=== PATIENT | male | born 1940 | race Hispanic/Latino ===

== ENCOUNTER → 2018-04-21 | Outpatient (CLI) | payer MEDICARE ==
[~2018-04-21] MED LIST: AMLO10TA7 PO; ATOR20TA65 PO; LISI1TAB9 PO
== END | disposition home or self-care (01) ==
LOC: RAH 10:16
PROVIDERS: ATTEND Internal Medicine
DX: S80.11XS Contusion of right lower leg, sequela (principal); X58.XXXS Exposure to other specified factors, sequela; R60.0 Localized edema; M25.561 Pain in right knee
CPT/HCPCS: 73562; 73590; 93971

== ENCOUNTER 2024-05-10 08:55 | Inpatient (IN) | payer OTHER, MEDICARE ==
[~2024-05-10] VITALS: Ht 167.6 cm; Wt 89.7 kg
[~2024-05-10 08:55] MED LIST changes: +AMLO-258 PO; -AMLO10TA7 PO; +LISI1TAB49 PO; -LISI1TAB9 PO
--- NOTE | 2024-05-10 09:14 | EKG ---
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
[2024-05-10 09:36] LABS: BASOPHILS # (AUTO) 0.02 K/uL (0.00-0.20); BASOPHILS % (AUTO) 0.1 % (0.0-5.0); EOSINOPHILS # (AUTO) 0.18 K/uL (0.00-0.70); EOSINOPHILS % (AUTO) 1.2 % (0.0-8.0); HEMATOCRIT 43.9 % (42-54); IMMATURE GRANULOCYTE ABSOLUTE 0.09 K/uL (0-1); LYMPHOCYTES # (AUTO) 2.6 K/uL (1.0-4.8); LYMPHOCYTES % (AUTO) 17.3 % (21.0-51.0); MEAN CORPUSCULAR HEMOGLOBIN 30.7 pg (27.0-33.0); MEAN CORPUSCULAR HGB CONC 32.6 g/dL (32.0-36.0); MEAN CORPUSCULAR VOLUME 94.2 fL (79-99); MONOCYTES # (AUTO) 1.2 K/uL (0.1-1.0); MONOCYTES % (AUTO) 7.9 % (3.0-13.0); NEUTROPHILS % (AUTO) 72.9 % (40.0-77.0); PLATELET COUNT (AUTO) 345 K/uL (130-400); RED BLOOD CELL COUNT(AUTO) 4.66 MIL/uL (4.50-6.20); RED CELL DISTRIBUTION WIDTH 13.4 % (11.0-15.5); WHITE BLOOD COUNT (AUTO) 15.1 K/uL (4.8-10.8)
[2024-05-10 09:48] LABS: CREATININE 1.4 mg/dL (0.5-1.3); POTASSIUM 4.3 mmol/L (3.5-5.1)
[2024-05-10 09:48] LABS: APPEARANCE,URINE CLEAR (CLEAR); BILIRUBIN,URINE NEGATIVE (NEGATIVE); COLOR,URINE YELLOW (YELLOW); GLUCOSE, URINE (UA) NEGATIVE (NEGATIVE); KETONES,URINE NEGATIVE (NEGATIVE); LEUKOCYTE ESTERASE ,URINE 75 Leu/uL (NEGATIVE); NITRATE,URINE NEGATIVE (NEGATIVE); OCCULT BLOOD,URINE NEGATIVE (NEGATIVE); PROTEIN,URINE 70 mg/dL (NEGATIVE); UROBILINOGEN,URINE 0.2 mg/dL (0.2-1.0)
[2024-05-10 09:52] LABS: ADD UA MICROSCOPIC YES
[2024-05-10 09:53] LABS: BACTERIA,URINE RARE /HPF (None Seen); MUCUS,URINE RARE LPF (None Seen); RBC,URINE 0-1 /HPF (0-1); SQUAMOUS EPITHELIAL CELL,UR RARE /HPF (0-2); WBC,URINE 26-50 /HPF (0-1)
--- NOTE | 2024-05-10 10:06 | HMCIMG ---
Exam Type: CHEST 1VW Clinical Information: WEAKNESS Comparison: None Findings: There is cardiomegaly and there is status post median sternotomy. The lungs are clear of infiltrates. Impression: Clear lungs.
--- NOTE | 2024-05-10 10:13 | ERN ---
ED Note History of Present Illness Stated Complaint: WEAKNESS X ONE WEEK, PER FAMILY Chief Complaint: Fatigue Time Seen by MD: 10:04 Dictation: Patient is an 83-year-old male here with his daughter with complaints of generalized body weakness fatigue with swelling to his lower extremities for several days. She states his primary care doctor told him he had a heart attack several days ago and to come to the hospital. . Currently patient is alert and oriented times 3-4, speech is clear moving all extremities 5/5. Does not have any pain no fever no chills. Allergies: Coded Allergies: No Known Drug Allergies (Unverified Allergy, Unknown, 11/08/16) Home Meds Reported Medications Lisinopril/Hydrochlorothiazide (Lisinopril-Hctz 10-12.5 mg Tab) 1 Each Tablet, 1 EACH PO DAILY, TAB 11/08/16 Amlodipine Besylate (Amlodipine Besylate) 10 Mg Tablet, 10 MG PO DAILY, TAB 11/08/16 Atorvastatin Calcium (Atorvastatin Calcium) 20 Mg Tablet, 20 MG PO HS, TAB 11/08/16 Past Medical History Past Medical History: A-Fib, Diabetes-Type II, GERD, Heart Disease, Hypertension Surgical History: CABG Surgical History Other: HERNIA RN Note Reviewed/Agreed w/PFSH: Yes Review of System Dictation CONSTITUTIONAL: Negative except for HPI fatigue HEAD/FACE: Negative except for HPI EENT: Negative except for HPI RESPIRATORY: Negative except for HPI edema GASTROINTESTINAL/ABDOMINAL: Negative except for HPI GENITOURINARY: Negative except for HPI MUSCULOSKELETAL: Negative except for HPI INTEGUMENTARY: Negative except for HPI NEUROLOGICAL/PSYCH: Negative except for HPI HEMATOLOGIC/LYMPHATIC: Negative except for HPI All Systems Negative, Except as noted above. 13 point review of systems assessed and all negative except for above. Initial Vital Sign VS Vital Signs Date Time Temp Pulse Resp B/P (MAP) Pulse Ox O2 Delivery O2 Flow Rate FiO2 05/10/24 08:58 97.9 83 16 156/94 98 Room Air 0 05/10/24 09:20 21 Physical Exam Dictation Vital Signs reviewed General Appearance: Alert, oriented x 3, no acute distress, well developed, nourished. Head and Face: non-traumatic. Eyes: PERRL, pink conjunctivas, eyelid no trauma, anterior chamber with arcus senilis. Ears: Pinnas intact and no signs of trauma or erythema ear canals clear and no discharge TM no erythema Nose: No discharge, no bleeding. Oropharynx: Mouth normal, tongue pink, pharynx clear,no erythema, tonsils no exudates, no abscesses noted, mucous membrane moist Neck: Supple, non-tender, no thyromegaly, no masses, no JVD, no bruits Breast:Deferred Chest:No tenderness, no crepitus, no paradoxical movement, no retractions Lungs:Clear, well-ventilated, symmetric, no rales, no wheezing, no rhonchi, no stridor, good breath sounds bilaterally Heart: Regular rate, regular rhythm, no murmur, no gallops Vascular: 3+ peripheral edema, Abdomen: Soft, positive bowel sounds, nondistended, no guarding, nontender, no rebound, no masses no hepatomegaly, no splenomegaly, no Briscoe's sign, no hernias. Rectal: Deferred Genital: Deferred Neurological: Normal speech, motor function intact, sensory function intact Musculoskeletal: Neck nontender, full range of motion, back nontender, full range of motion, Extremities: nontender, full range of motion Skin: Color pink, dry, no turgor, no rash, no lacerations, no abrasions, no contusions. Lymphatic: Deferred Results (Laboratory/Radiology) Laboratory/Radiology Laboratory Tests Test 05/10/24 09:28 05/10/24 09:33 05/10/24 10:43 05/10/24 17:11 White Blood Count 15.1 K/uL (4.8-10.8) H Red Blood Count 4.66 MIL/uL (4.50-6.20) Hemoglobin 14.3 g/dL (14.0-18.0) Hematocrit 43.9 % (42-54) Mean Corpuscular Volume 94.2 fL (79-99) Mean Corpuscular Hemoglobin 30.7 pg (27.0-33.0) Mean Corpuscular Hemoglobin Concent 32.6 g/dL (32.0-36.0) Red Cell Distribution Width 13.4 % (11.0-15.5) Platelet Count 345 K/uL (130-400) Mean Platelet Volume 9.8 fL (7.5-10.5) Immature Granulocyte % (Auto) 0.6 % (0-1) Neutrophils (%) (Auto) 72.9 % (40.0-77.0) Lymphocytes (%) (Auto) 17.3 % (21.0-51.0) L Monocytes (%) (Auto) 7.9 % (3.0-13.0) Eosinophils (%) (Auto) 1.2 % (0.0-8.0) Basophils (%) (Auto) 0.1 % (0.0-5.0) Neutrophils # (Auto) 11.0 K/uL (1.8-7.7) H Lymphocytes # (Auto) 2.6 K/uL (1.0-4.8) Monocytes # (Auto) 1.2 K/uL (0.1-1.0) H Eosinophils # (Auto) 0.18 K/uL (0.00-0.70) Basophils # (Auto) 0.02 K/uL (0.00-0.20) Absolute Immature Granulocyte (auto 0.09 K/uL (0-1) Nucleated Red Blood Cells 0.0 % (0.0-0.19) Prothrombin Time 11.5 SEC (9.6-11.6) Prothromb Time International Ratio 1.09 (0.85-1.15) Activated Partial Thromboplast Time 29.6 SEC (26.3-35.5) Sodium Level 138 mmol/L (136-145) Potassium Level 4.3 mmol/L (3.5-5.1) Chloride Level 101 mmol/L (101-111) Carbon Dioxide Level 32 mmol/L (21-32) Blood Urea Nitrogen 30 mg/dL (7-18) H Creatinine 1.4 mg/dL (0.5-1.3) H Glomerular Filtration Rate Calc 50 mL/min (>90) Random Glucose 114 mg/dL (70-105) H Hemoglobin A1c 6.4 % (4.0-6.0) H Estimated Average Glucose (eAG) 137 mg/dL (70-126) H Total Calcium 9.1 mg/dL (8.5-10.1) Magnesium Level 2.00 mg/dL (1.80-2.40) Total Bilirubin 0.8 mg/dL (0.2-1.0) Direct Bilirubin 0.3 mg/dL (0.0-0.3) Aspartate Amino Transf (AST/SGOT) 25 U/L (10-37) Alanine Aminotransferase (ALT/SGPT) 30 U/L (12-78) Alkaline Phosphatase 111 U/L (50-136) Troponin I High Sensitivity 28 ng/L (4-75) Total Protein 7.2 g/dL (6.0-8.3) Albumin 3.4 g/dL (3.5-5.0) L Thyroid Stimulating Hormone (TSH) 2.03 uIU/mL (0.36-3.74) Urine Color YELLOW (YELLOW) Urine Appearance CLEAR (CLEAR) Urine pH 6.0 (5.0-8.0) Urine Specific Ledbetter 1.028 (1.001-1.031) Urine Protein 70 mg/dL (NEGATIVE) H Urine Glucose (UA) NEGATIVE mg/dL (NEGATIVE) Urine Ketones NEGATIVE mg/dL (NEGATIVE) Urine Occult Blood NEGATIVE (NEGATIVE) Urine Nitrate NEGATIVE (NEGATIVE) Urine Bilirubin NEGATIVE mg/dL (NEGATIVE) Urine Urobilinogen 0.2 mg/dL (0.2-1.0) Urine Leukocyte Esterase 75 Roger/uL (NEGATIVE) H Urine RBC 0-1 /HPF (0-1) Urine WBC 26-50 /HPF (0-1) H Urine Squamous Epithelial Cells RARE /HPF (0-2) Urine Bacteria RARE /HPF (None Seen) Urine Hyaline Casts 2-5 /LPF (0-1 /LPF) H Lactic Acid Level 1.3 mmol/L (0.8-2.5) B-Type Natriuretic Peptide 648 pg/mL (0-100) H Whole Blood Glucose 100 MG/DL (70-110) VICE 0907 REASON: WEAKNESS ORDERING PHYSICIAN: ZULY OLIVEIRA DO PROCEDURE: CXR1VW - CHEST 1VW Exam Type: CHEST 1VW Clinical Information: WEAKNESS Comparison: None Findings: There is cardiomegaly and there is status post median sternotomy. The lungs are clear of infiltrates. Impression: Clear lungs. 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 ED Course ED Course Orders Procedure Category Date Status Time Cbc With Differential LAB 05/10/24 Complete 09:07 Basic Metabolic Panel LAB 05/10/24 Complete 09:07 Troponin I High LAB 05/10/24 Complete Sensitivity 09:07 12 Lead Ekg Tracing- EKG 05/10/24 Complete Technical 09:07 Chest 1vw RAD 05/10/24 Resulted 09:07 Urinalysis Profile LAB 05/10/24 Complete 09:07 Urinalysis LAB 05/10/24 Logged W/Microscopic 09:38 Culture Urine MAR 05/10/24 In Process 09:51 B-Type Natriuretic LAB 05/10/24 Complete Peptide 10:09 Blood Cult MAR 05/10/24 In Process 10:16 Lactic Acid LAB 05/10/24 Complete 10:16 Furosemide 40mg Vial PHA 05/10/24 Complete (Lasix 40mg Vial) 12:00 Edm Admit Bridge Order ADM 05/10/24 Transmitted 13:34 Admit Orders ADM 05/10/24 Transmitted 14:02 Echo 2-D Complete ECHO 05/10/24 Logged 14:02 Fall Precautions CPOE 05/10/24 Transmitted 14:15 Aspiration Precautions CPOE 05/10/24 Transmitted 14:15 Consistent Carb DIET 05/10/24 Transmitted Dinner Daily Fluid Intake CPOE 05/10/24 Transmitted Restriction 14:15 Initiate ALY 05/10/24 In Process Hyperglycemia Protoco 14:16 Insulin Regular, PHA 05/10/24 In Process Human 3ml (Humulin R 16:30 Strict I&O CPOE 05/10/24 Transmitted 14:16 Daily Weights CPOE 05/10/24 Transmitted 14:16 *Nursing CPOE 05/10/24 Transmitted Communication: 14:16 Elevate Hob At 30 CPOE 05/10/24 Transmitted Degrees 14:16 Budesonide 0.5 Mg/2 PHA 05/10/24 In Process Ml Inh (Pulmicort 0. 18:00 Ipratropium 0.5 PHA 05/10/24 In Process Mg/2.5 Ml Inh 14:30 Us Venous Doppler US 05/10/24 Resulted Bilateral 14:16 Magnesium LAB 05/10/24 Complete 14:18 Cardiology Consult CONPHYSVC 05/10/24 Transmitted 14:18 Nephrology Consult CONPHYSVC 05/10/24 Transmitted 14:18 Telemetry Monitoring CPOE 05/10/24 Transmitted 14:18 Hepatic Function Panel LAB 05/10/24 Complete 14:18 Ceftriaxone 1g Vial PHA 05/10/24 In Process (Rocephine 1g Inj) 14:30 Pt And Ptt LAB 05/10/24 Complete 14:18 Scd Both Legs While CPOE 05/10/24 Transmitted In Bed 14:18 Acetaminophen 325 Tab PHA 05/10/24 In Process (Tylenol 325mg Tab 14:30 Ondansetron 4mg Inj PHA 05/10/24 In Process (Zofran 4mg Inj) 14:30 Furosemide 40mg Vial PHA 05/10/24 In Process (Lasix 40mg Vial) 21:00 Pantoprazole 40mg Tab PHA 05/10/24 In Process (Protonix 40mg Tab 14:30 Vital Signs(Adult CPOE 05/10/24 Transmitted Hospitalist) 14:23 I&O Q Shift CPOE 05/10/24 Transmitted 14:23 Condition: CPOE 05/10/24 Transmitted 14:23 Activity: Br W/Brp CPOE 05/10/24 Transmitted With Assist 14:23 Enoxaparin Sodium 30 PHA 05/11/24 In Process Mg/0.3 Ml (Lovenox) 09:00 Folic Acid/Vitamin B PHA 05/11/24 In Process Comp W-C (Nephrovit 09:00 Thyroid Stimulating LAB 05/10/24 Complete Hormone 14:23 Hemoglobin A1c LAB 05/10/24 Complete 14:23 Us Abdominal Complete US 05/10/24 Taken 14:15 Metoprolol Succinate PHA 05/10/24 In Process (Toprol Xl) 21:00 Thiamine Hcl (Vitamin PHA 05/10/24 In Process B-1) 15:30 Etoh Alcohol ALY 05/10/24 In Process Withdrawal Ords 15:33 Chlordiazepoxide Hcl PHA 05/10/24 In Process 25 Mg Cap (Librium 16:00 Lorazepam 2 Mg PHA 05/10/24 In Process (Ativan) 16:00 Pharmacy PHA 05/10/24 In Process Communication 16:00 Use The Aleciatn-Ar CPOE 05/10/24 Transmitted Assmt. Tool 15:33 Assess The Need For CPOE 05/10/24 Transmitted Seizure & 15:33 Vs Per Unit Routine & CPOE 05/10/24 Transmitted With 15:33 Document Etoh CPOE 05/10/24 Transmitted Withdrawal Score 15:33 Current Medications Medications (Trade) Dose Ordered Sig/Linda Route PRN Reason Start Time Stop Time Status Last Admin Dose Admin Furosemide (LASix 40MG VIAL) 80 mg ONCE ONCE IVP 05/10/24 12:00 05/10/24 12:01 DC 05/10/24 13:19 Vital Signs Date Time Temp Pulse Resp B/P (MAP) Pulse Ox O2 Delivery O2 Flow Rate FiO2 05/10/24 17:00 97.9 91 18 144/91 98 Room Air* 0 21 05/10/24 13:29 91 18 142/97 97 Room Air* 0 21 05/10/24 09:20 97.9 79 16 156/94 99 Room Air* 0 21 05/10/24 08:58 97.9 83 16 156/94 98 Room Air 0 1215/PATIENT REMAINS OUTSIDE AND HAS NOT BEEN ROOMED YET. HE WILL BE ADMITTED TO THE HOSPITAL SOON HE IS ROOMED IN THE EMERGENCY ROOM. 1325/PATIENT NOW IN ROOM FOUR AND FAMILY AT BEDSIDE WHERE. THEY ARE AWARE THAT WE ARE ADMITTING HIM FOR ACUTE CHF, HE DOES HAVE A HISTORY OF ATRIAL FIBRILLATION IS ON METOPROLOL. 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 1330/SPOKE WITH , REVIEWED CHEST X-RAY EKG LABS AND HE AGREED TO ADMIT PATIENT. HEART Score Response (Comments) Value EKG: Repolarization changes 1 Age: > 65yrs (+2) 2 Risk Factors: 3+ risk factors (+2) 2 Initial Troponin: Normal limit (0) 0 Total 5 Medical Decision Making MDM MDM: DIFFERENTIAL DIAGNOSIS: ACS/AMI/ELECTROLYTE IMBALANCE/DEHYD RATION/PNEUMONIA/BRONCHITIS/CHF RATIONALE: TESTS CONSIDERED AND ORDERED SECONDARY TO SHARED DECISION MAKING INCLUDE: LABS, ECG AND RADIOLOGY PREVIOUS OUTSIDE RECORDS REVIEWED: OLD ER VISITS. REVIEWED RISK OF COMPLICATION AND/OR MORBIDITY OR MORTALITY OF PATIENT MANAGEMENT: MILD MEDICATIONS-PER MEDICATION RECONCILIATION NEED FOR HOSPITALIZATION: PATIENT DOES MEET CRITERIA FOR HOSPITALIZATION. PATIENT WILL BE ADMITTED TO THE HOSPITAL FOR ACUTE CHF EXACERBATION, SHILA NEED FOR EMERGENCY MAJOR/MINOR SURGERY: NO THERE ARE NO SOCIAL CONCERNS WITH THIS PATIENT. PRESCRIPTION DRUG MANAGEMENT PRESCRIPTIONS WILL INCLUDE SYMPTOMATIC CARE PATIENT'S PRIOR EXTERNAL MEDICAL RECORDS FROM OTHER ER VISITS WERE REVIEWED BY ME INDICATED. PRIOR TESTING AND RESULTS FROM PREVIOUS VISITS WERE REVIEWED. PRIOR TESTS WERE TAKEN INTO ACCOUNT WITH MEDICAL DECISION MAKING AND RESOURCE UTILIZATION, INDEPENDENT HISTORIAN/HISTORIANS WERE USED TO OBTAIN COMPLETE MEDICAL HISTORY. I INDEPENDENTLY INTERPRETED THE TEST THAT WERE PERFORMED, RESULTS WERE REVIEWED BY ME AND CONSIDERED FINDINGS ON RADIOLOGY IF ORDERED. MEDICAL MANAGEMENT AND EXAMINATION INTERPRETATION DISCUSSIONS WERE HAD BY ME WITH OTHER QUALIFIED HEALTHCARE PROFESSIONALS INDICATED FOR THE PATIENT'S CARE. DX & DISP Disposition: Inpatient Decision to Admit Time: 13:26 Departure Impression: Primary Impression: Acute exacerbation of CHF (congestive heart failure) Additional Impressions: SHILA (acute kidney injury), Leukocytosis, Atrial fibrillation by electrocardiogram, Weakness Condition: Stable Referrals: JOYCE PATEL MD (PCP) Time of Disposition: 13:26 I have reviewed the case, and I agree with, Diagnosis and Plan I performed a substantive portion of the visit. I have reviewed and personally made and approve the management plan that is documented in the notes by myself with TORSTEN/resident. I acknowledged full responsibility for the patient's management plan. OBI JIMENEZ NP May 10, 2024 10:13 ZULY OLIVEIRA DO May 10, 2024 18:08
[2024-05-10] MEDS: furoSEMIDE 40MG VIAL IVP ONE (13:19)
[2024-05-10] MEDS ORDERED: ondanSETRON 4MG INJ IVP PRN (14:30)
[2024-05-10] MEDS: PANTOPrazole 40 MG TAB DR PO SCH (14:30)
[2024-05-10] MEDS ORDERED: IpraTROPium 0.5 MG/2.5 ML INH IH PRN (14:30)
[2024-05-10 14:41] LABS: INR 1.09 (0.85-1.15); PROTHROMBIN TIME 11.5 SEC (9.6-11.6)
[2024-05-10 14:42] LABS: PARTIAL THROMBOPLASTIN TIME 29.6 SEC (26.3-35.5)
[2024-05-10 14:56] LABS: ALBUMIN 3.4 g/dL (3.5-5.0); BILIRUBIN,DIRECT 0.3 mg/dL (0.0-0.3); BILIRUBIN,TOTAL 0.8 mg/dL (0.2-1.0); TOTAL PROTEIN, SERUM 7.2 g/dL (6.0-8.3)
--- NOTE | 2024-05-10 15:01 | NUR ---
PTS LAST ORAL INTAKE WAS APPROX AT 130 PM
[2024-05-10 15:03] LABS: HEMOGLOBIN A1C 6.4 % (4.0-6.0)
--- NOTE | 2024-05-10 15:16 | HP ---
[facility] HISTORY AND PHYSICAL Date of Service: May 10, 2024 Time of Service: 15:16 HISTORY OF PRESENT ILLNESS: Date of service: 05/10/2024, patient was seen in ER room four 83-year-old male with underlying history of type 2 diabetes mellitus, obesity, hypertension, GERD, coronary artery disease with prior history of coronary artery bypass grafting who presented to the ER for further evaluation of genera lized weakness and significant lower extremity edema. Symptoms have been ongoing for the past several days family reports that patient has been having significant swelling in the lower extremities. Patient has been having PND, orthopnea, dyspnea on exertion with minimal ambulation. Patient does have underlying previous cardiac comorbidities including coronary artery disease for which he needed coronary artery bypass grafting in 2021. Family is unsure about the chronicity of atrial fibrillation and is unsure about, if patient takes any anticoagulation at home. Family denies any recent falls. Patient denies any focal weakness of upper or lower extremities. Denies any history of GI bleeding previously. On presentation to the hospital, [place] [address], hemoglobin of 14.3, platelet count of 553012. BMP remarkable for sodium of 138, potassium 4.3, BUN of 30, creatinine 1.4, BNP was noted to be at 648. Chest X-ray showed bilateral infiltrates concerning for pulmonary edema. P atient will be admitted for further management of heart failure exacerbation, patient noted to also have atrial fibrillation, we will discuss with Cardiology about chronic anticoagulation. 2D echocardiogram will be obtained. Renal function is decreased as well, we will have Nephrology follow this patient. We will see how patient progresses in the next 48-72 hours with IV diuresis. REVIEW OF SYSTEMS CONSTITUTIONAL: Denies fevers, chills, or night sweats. No unintentional weight loss reported. NEUROLOGICAL: Denies headache, amaurosis fugax, motor weakness, sensory deficit, vertigo/spinning sensation, gait abnormalities, or tremors. ENT: No hearing loss, otalgia, otorrhea, rhinitis, rhinorrhea, hoarseness, or sore throat. CARDIOVASCULAR: PND, orthopnea, shortness of breath, dyspnea on exertion, significant lower extremity edema PULMONARY: Denies any shortness of breath, cough, phlegm/sputum, hemoptysis, pleuritic chest pain. SLEEP: Denies morning headaches, daytime somnolence or napping. Denies difficulty falling asleep, staying asleep, waking from sleep. Denies knowledge of snoring. GASTROINTESTINAL: Denies any type of dysphagia to either liquids or solids. Denies nausea, vomiting, pyrosis, early satiety, abdominal pain, diarrhea, constipation, or changes in stool consistency or caliber. Denies coffee-ground emesis, hematemesis, hematochezia, or melanotic stools. GENITOURINARY: Denies frequency, urgency, nocturia, hematuria or incontinence (Storage/Irritative symptoms.) Low urinary stream, straining to void, urinary intermittency or hesitancy, splitting of the voiding stream, terminal dribbling. ENDOCRINOLOGIC: Denies polyuria, polydipsia, polyphagia or heat/cold intolerances. HEMATOLOGIC: Denies thrombophilia/previous clots, or coagulopathy/bleeding di sorders. ONCOLOGIC: Denies personal history of malignancy. DERMATOLOGIC: Denies rashes or pruritus. PSYCHIATRIC: Denies any suicidal or homicidal ideation. Denies hallucinations. PAST MEDICAL HISTORY: Hypertension, hyperlipidemia, type 2 diabetes mellitus, coronary artery disease, atrial fibrillation PAST SURGICAL HISTORY: Coronary artery bypass grafting in 2021, history of abdominal hernia repair PAST SOCIAL HISTORY: Denies active smoking, drinks about 2-3 beers every week, denies any significant active smoking FAMILY HISTORY: Denies pertinent family hx Home medications: Family will be bringing list of home medications to be reconciled and updated Coded Allergies: No Known Drug Allergies (Unverified Allergy, Unknown, 11/08/16) PHYSICAL EXAM GENERAL APPEARANCE: The patient is awake, alert, and oriented, in no acute cardiopulmonary distress. NEUROLOGICAL: Cranial nerves II-XII grossly intact. Motor is 5/5 in bilateral upper and lower extremities proximal to distal. No sensory deficits. No focal deficits noted of the bilateral upper or lower extremity HEENT: Face is symmetric. Pupils are equal and reactive. Extraocular movements are intact. NECK: Supple. No JVD. No thyromegaly. No submental, submandibular, pre- /postauricular, occipital or supraclavicular lymphadenopathy. CHEST: Normal chest expansion. No Telemetry. LUNGS: crackles noted of the bilateral lung bases CARDIOVASCULAR: Regular. S1 and S2 normal. No appreciable rubs, murmurs or gallops. ABDOMEN: Soft, nontender, and nondistended. There is no rebound, voluntary guarding, or rigidity. : Deferred. No Cristina. EXTREMITIES: 2+ pitting edema noted of the bilateral lower extremities SKIN: No skin breakdown. Vital Sign (Last 24 Hours) 05/10/24 05/10/24 09:20 13:29 Temp 97.9 Pulse 91 Resp 18 B/P (MAP) 142/97 Pulse Ox 97 O2 Delivery Room Air* O2 Flow Rate 0 FiO2 21 LABS: Laboratory: Test 05/10/24 10:43 05/10/24 09:33 05/10/24 09:28 Range/Units Lactic Acid Level 1.3 0.8-2.5 mmol/L B-Type Natriuretic Peptide 648 H 0-100 pg/mL Urine Color YELLOW YELLOW Urine Appearance CLEAR CLEAR Urine pH 6.0 5.0-8.0 Urine Specific [place] 1.028 1.001-1.031 Urine Protein 70 H NEGATIVE mg/dL Urine Glucose (UA) NEGATIVE NEGATIVE mg/dL Urine Ketones NEGATIVE NEGATIVE mg/dL Urine Occult Blood NEGATIVE NEGATIVE Urine Nitrate NEGATIVE NEGATIVE Urine Bilirubin NEGATIVE NEGATIVE mg/dL Urine Urobilinogen 0.2 0.2-1.0 mg/dL Urine Leukocyte Esterase 75 H NEGATIVE Roger/uL Urine RBC 0-1 0-1 /HPF Urine WBC 26-50 H 0-1 /HPF Urine Squamous Epithelial Cells RARE 0-2 /HPF Urine Bacteria RARE None Seen /HPF Urine Hyaline Casts 2-5 H 0-1 /LPF /LPF White Blood Count 15.1 H 4.8-10.8 K/uL Red Blood Count 4.66 4.50-6.20 MIL/uL Hemoglobin 14.3 14.0-18.0 g/dL Hematocrit 43.9 42-54 % Mean Corpuscular Volume 94.2 79-99 fL Mean Corpuscular Hemoglobin 30.7 27.0-33.0 pg Mean Corpuscular Hemoglobin Concent 32.6 32.0-36.0 g/dL Red Cell Distribution Width 13.4 11.0-15.5 % Platelet Count 345 130-400 K/uL Mean Platelet Volume 9.8 7.5-10.5 fL Immature Granulocyte % (Auto) 0.6 0-1 % Neutrophils (%) (Auto) 72.9 40.0-77.0 % Lymphocytes (%) (Auto) 17.3 L 21.0-51.0 % Monocytes (%) (Auto) 7.9 3.0-13.0 % Eosinophils (%) (Auto) 1.2 0.0-8.0 % Basophils (%) (Auto) 0.1 0.0-5.0 % Neutrophils # (Auto) 11.0 H 1.8-7.7 K/uL Lymphocytes # (Auto) 2.6 1.0-4.8 K/uL Monocytes # (Auto) 1.2 H 0.1-1.0 K/uL Eosinophils # (Auto) 0.18 0.00-0.70 K/uL Basophils # (Auto) 0.02 0.00-0.20 K/uL Absolute Immature Granulocyte (auto 0.09 0-1 K/uL Nucleated Red Blood Cells 0.0 0.0-0.19 % Prothrombin Time 11.5 9.6-11.6 SEC Prothromb Time International Ratio 1.09 0.85-1.15 Activated Partial Thromboplast Time 29.6 26.3-35.5 SEC Sodium Level 138 136-145 mmol/L Potassium Level 4.3 3.5-5.1 mmol/L Chloride Level 101 101-111 mmol/L Carbon Dioxide Level 32 21-32 mmol/L Blood Urea Nitrogen 30 H 7-18 mg/dL Creatinine 1.4 H 0.5-1.3 mg/dL Glomerular Filtration Rate Calc 50 >90 mL/min Random Glucose 114 H 70-105 mg/dL Hemoglobin A1c 6.4 H 4.0-6.0 % Estimated Average Glucose (eAG) 137 H 70-126 mg/dL Total Calcium 9.1 8.5-10.1 mg/dL Magnesium Level 2.00 1.80-2.40 mg/dL Total Bilirubin 0.8 0.2-1.0 mg/dL Direct Bilirubin 0.3 0.0-0.3 mg/dL Aspartate Amino Transf (AST/SGOT) 25 10-37 U/L Alanine Aminotransferase (ALT/SGPT) 30 12-78 U/L Alkaline Phosphatase 111 50-136 U/L Troponin I High Sensitivity 28 4-75 ng/L Total Protein 7.2 6.0-8.3 g/dL Albumin 3.4 L 3.5-5.0 g/dL Thyroid Stimulating Hormone (TSH) 2.03 0.36-3.74 uIU/mL Current Medications Medications (Trade) Dose Ordered Sig/Linda Route PRN Reason Start Time Stop Time Status Last Admin Dose Admin Acetaminophen (TYLenol 325MG TAB) 650 mg Q6H PRN PO MILD PAIN (1-3) 05/10/24 14:30 06/09/24 14:29 Budesonide (Pulmicort 0.5 Mg/2ml) 0.5 mg BIDRESP IH 05/10/24 18:00 06/09/24 17:59 Ceftriaxone Sodium (ROCEphine 1G INJ) 1 gm Q24H IVPB 05/10/24 14:30 05/20/24 14:29 Enoxaparin Sodium (Lovenox) 30 mg DAILY SQ 05/11/24 09:00 06/10/24 08:59 Furosemide (LASix 40MG VIAL) 40 mg BID IV 05/10/24 21:00 06/09/24 20:59 Insulin Human Regular (humuLIN R 100 UNIT/ML 3ML) INSULIN SLIDING SCAL... ACHS SQ 05/10/24 16:30 06/09/24 16:29 Ipratropium [place] (AtrovENT UD) 0.5 mg Q6H PRN IH SHORTNESS OF BREATH 05/10/24 14:30 06/09/24 14:29 Metoprolol Succinate (TopROL XL) 50 mg HS PO 05/10/24 21:00 06/09/24 20:59 UNV Ondansetron HCl (zoFRAN 4MG INJ) 4 mg Q6H PRN IVP NAUSEA/VOMITING 05/10/24 14:30 06/09/24 14:29 Pantoprazole Sodium (PROTonix 40MG TAB) 40 mg Q24H PO 05/10/24 14:30 06/09/24 14:29 Vitamin B Complex/ Vit C/Folic Acid (Nephrovite Tablet) 1 cap DAILY PO 05/11/24 09:00 06/10/24 08:59 DIAGNOSTICS / RADIOLOGY: SERVICE 6 REASON: WEAKNESS ORDERING PHYSICIAN: ZULY OLIVEIRA DO PROCEDURE: CXR1VW - CHEST 1VW Exam Type: CHEST 1VW Clinical Information: WEAKNESS Comparison: None Findings: There is cardiomegaly and there is status post median sternotomy. The lungs are clear of infiltrates. Impression: Clear lungs. DICTATED BY: JESUS MARTINEZ MD DATE: 05/10/24 100 ELECTRONICALLY SIGNED BY: JESUS MARTINEZ MD DATE: 05/10/24 100 ASSESSMENT: Acute systolic heart failure exacerbation, POA, (pending 2D echocardiogram to assess diastolic function) Acute kidney injury, POA Urinary tract infection, POA Atrial Fibrillation (unknown chronicity), POA Query if patient is on anticoagulation as outpatient, POA Hypertension, POA Octogenarian, POA Frailty, POA Obesity, POA Leukocytosis, POA GERD, POA Prior history of alcohol use, POA History of type 2 diabetes mellitus, POA PLAN: Patient will be admitted to cardiac telemetry floor Continue with metoprolol succinate 50 mg at bedtime Patient received 80 mg of IV Lasix in the ER close to the afternoon, we will monitor urine output closely, we will start IV diuresis with Lasix 40 mg q.12 hours, Cristina catheter to be placed in case patient has significant urinary retention Obtain 2D echocardiogram Obtain renal ultrasound, rule out any obstructive uropathy Obtain liver ultrasound to rule out changes of cirrhosis, per daughter, patient has previous history of heavy alcohol consumption and recently has cut down on drinking to about 2-3 beers in a week, denies any previous history of significant alcohol withdrawals, we will place patient on CIWA protocol We will start patient on IV Rocephin for management of urinary tract infection EKG demonstrated atrial fibrillation, unsure if the atrial fibrillation is new onset or chronic, we will discuss with family if patient is on anticoagulation chronically as outpatient, patient denies any significant falls or prior history of significant GI bleeding Electrolytes will be repleted per protocol Discussed patient's case with Dr. Moreno. appreciate recommendations We will have Nephrology follow this patient All home medications were reconciled and updated Patient will be placed on sliding scale insulin a.c. and HS All labs will be repeated in the morning Anticipate hospitalization for at least 48-72 hours Date of service: 05/10/2024 Plan of care was discussed with patient at bedside, Aren Rowell MD Advanced Care Planning: Which of the following were discussed: Hospice care: Yes __ No _X_ Therapeutic options: Yes _X_ No __ Advance directives: Yes __X No __ Other discussions: Discussed with who?: Family Voluntary nature of this service was explained to the patient? Yes _x_ No __ Amount of time spent: 20 minutes AREN ROWELL MD May 10, 2024 15:16
[2024-05-10] MEDS: cefTRIAXone 1G VIAL IVPB SCH (15:24)
[2024-05-10] MEDS: acetaMINOPHEN 325 MG TAB PO PRN (15:45)
[2024-05-10] MEDS: THIAMINE HCL 100 MG/ML 2ML VIAL IVP SCH (15:46)
--- NOTE | 2024-05-10 15:48 | HMCIMG ---
Exam Type: US VENOUS DOPPLER BILATERAL Clinical Information: r/o DVT of the bilateral lower extremities Comparison: None Findings: The examination shows normal deep venous system. There is normal compressibility at all levels. There is no intraluminal clot. There is no occlusion. Adequate response is obtained on augmentation. Impression: No evidence of DVT.
[2024-05-10] MEDS ORDERED: PHARMACY COMMUNICATION MISC PRN (16:00)
[2024-05-10] MEDS ORDERED: chlordiazePOXIDE HCL 25 MG CAP PO PRN (16:00)
[2024-05-10] MEDS ORDERED: LORazepam 2 MG/ML 1 ML VIAL IVP PRN (16:00)
[2024-05-10] MEDS: INSULIN humuLIN R 100 UNIT/ML 3ML SQ SCH (16:30)
--- NOTE | 2024-05-10 17:09 | CONS ---
CONSULT NOTE: CARDIOLOGY Reason for consult: CAD, CHF HPI/story at presentation: This is a pleasant 83-year-old male with past medical history as per present with complaints of lower EXTR edema, was newly diagnosed with atrial fibril lation. Reviewed EKGs in the office and in the hospital with no previous atrial fibrillation. Not on anticoagulation at home. Subjective: 05/10/2024, edema Past medical history: See below Allergies, Meds See chart Review of systems Review of Systems Constitutional: Negative for chills and fever. HENT: Negative for ear discharge and ear pain. Eyes: Negative for photophobia and discharge. Respiratory: Negative for cough, sputum production and stridor. Cardiovascular: Negative for chest pain and palpitations. Gastrointestinal: Negative for diarrhea and vomiting. Genitourinary: Negative for frequency. Musculoskeletal: Negative for myalgias. Skin: Negative for rash. Neurological: Negative for focal weakness and seizures. Endo/Heme/Allergies: Negative for polydipsia. Psychiatric/Behavioral: Negative for hallucinations. Vitals see chart PHYSICAL EXAMINATION GENERAL: The patient is alert and oriented*3 HEENT: Nonicteric sclerae, non traumatic HEART: Regular rate and rhythm with no murmurs LUNGS: Clear to auscultation bilaterally ABDOMEN: No acute issues, non tender GENITAL, RECTAL: deferred SKIN: No rash NEUROLOGIC: NFND EXTREMITIES: EDEMA ASSESSMENT CORONARY ARTERY DISEASE Status post bypass, 2021 CARDIOMYOPATHY Previous EF of 25% ATRIAL FIBRILLATION No previous history EDEMA Bilateral, on diuresis ACUTE KIDNEY INJURY History of, creatinine 1.4 at presentation Baseline creatinine 1.4, 2020 DIABETES, OBESITY, HYPERTENSION, DYSLIPIDEMIA CORE MEASURES On aspirin statin Entresto Lasix metoprolol at home OTHER MEDICAL PROBLEMS COPD Acid reflux, abdominal hernia surgery PLAN 05/10/2024 newly diagnosed atrial fibrillation, will get him on anticoagulation with heparin, will need to watch for issues with bleeding. Edema currently on diuresis known chronic kidney disease baseline creatinine 0.4. Known history of cardiomyopathy EF of 20% as well, question with diuresis as underlying cardiorenal syndrome is likely. No shortness of breath at this time. Seen and examined 05/10/2024 at around 1800. ATTESTATION I was involved substantially in the care of this patient Number and complexity of problems addressed: 1 acute illness with systemic features Amount and or complexity of data Review of prior external note(s) from each unique source: 2+ Ordering of each unique test : 0 Review of the result(s) of each unique test: 2+ Assessment requiring an independent historian(s): No Independent interpretation of test performed by another MD/QHCP/appropriate source (not separately reported) : No Discussion of management or test interpretation with external MD/QHCP/appropriate source (not separately reported) : No Risk status (cardiac, billing related): Moderate CHRISTIAN MORTON MD May 10, 2024 17:09
--- NOTE | 2024-05-10 18:44 | NUR ---
PT WAS ADVISED THAT WE ARE PENDING THE ABDOMINAL ULTRASOUND AND THAT OF YET WE DON'T HAVE A BED ASSIGNMENT. PT STATES HE DOES NOT WANT TO STAY IN THE ED AND IF HE DOES NOT GET PRIORITY, HE WILL LEAVE THE HOSPITAL AFTER FILING A REPORT. PT WAS ADVISED THAT BEDS ARE ASSIGNED BY THE HOUSE SUPPERVISOR AND THAT WE IN THE ED HAVE NO CONTROL OVER WHO IS NEXT IN LINE. PT STATES HE HAS NO ISSUE WITH THE ED STAFF, HE JUST DOES NOT SEE THE POINT IN STAYING IN THE ED.
[2024-05-10] MEDS: morPHINE 2 MG SYG IVP PRN (19:34)
--- NOTE | 2024-05-10 19:55 | HMCIMG ---
Exam Type: TIBIA/FIBULA 2VWS LT, ANKLE COMP 3VWS LT Clinical Information: SEVERE PAIN, R/O ANY FRACTURES Comparison: None Findings: No acute fractures or dislocations. No bone destruction. Calcaneal spurs. Soft tissue swelling of the ankle. IMPRESSION: Soft tissue swelling of the ankle.
[2024-05-10 20:11] VITALS: PULSE 78; RESP 20; O2SAT 96
[2024-05-10] MEDS: BUDESONIDE 0.5 MG/2 ML INH IH SCH (20:11)
[2024-05-10] MEDS: furoSEMIDE 40MG VIAL IV SCH (21:19)
[2024-05-10] MEDS: metOPROLol sucCINATE 50 MG TAB.SR.24H PO SCH (22:02)
[2024-05-10 22:26] LABS: CREATININE 1.5 mg/dL (0.5-1.3); MAGNESIUM 2.1 mg/dL (1.80-2.40)
[2024-05-10 22:55] LABS: CREATININE,URINE RANDOM 168.63 mg/dL (30-135)
[2024-05-11] VITALS (9 sets, daily range): BP systolic 117–132; BP diastolic 57–83; PULSE 59–85; RESP 18–20; TEMP 97.9–98.7; O2SAT 95–98
--- NOTE | 2024-05-11 00:46 | HMCSR ---
APPROVED REPORT EXAM: Two-dimensional and M-mode echocardiogram with Doppler and color Doppler. INDICATION ICD: Suspected heart failure exacerbation 2D Dimensions RVDd4.9 cmLVEF(%)15.9 (>50%)LVEF(%, simp.)24 % IVSd0.9 (0.7-1.1cm)FS(%)7 %LA ESV INDEX (BP)66.86 mL/m2 LVDd6.0 (3.8-5.6cm)LA (2D)5.3 (1.6-4.0cm) PWd1.2 (0.7-1.1cm)Ao Root(2D)3.3 (2.0-3.7cm) IVSs1.0 cmLVOT diam2.3 (1.8-2.4cm) LVDs5.6 (2.5-4.0cm)IVC diam1.7 cm PWs1.3 cm Deformation Strain Apical 4-7.0 % Apical 2-3.0 % Apical 3-8.0 % Global Strain-6.0 % M-Mode Dimensions EPSS1.9 cm LA (MM)6.0 (1.6-4.0cm) Ao Root(MM)3.4 (2.0-3.7cm) Aortic Valve AoV Vmax1.2 m/Matilde Peak GR6.0 mmHgLVOT Vmax0.8 m/s ZACKARY (VMAX)2.9 cm2Ao Mean GR4.0 mmHg Mitral Valve MV E Vmax97.6 cm/sDECEL Fyyk304 msMR VRR934 cm2 P 1/2 T42 ms MVA (PHT)5.3 cm2 TDI E/E' Mzanup59.3E/E' Cyrhmct74.2 Medial E' Peak V6.00 cm/sLateral E' Peak V8.00 cm/s Pulmonary Valve PV Vmax0.7 m/s Tricuspid Valve TR Vmax2.0 m/sRAP (EST) 3 etFvVSYV91.0 mmHg TR Peak GR16.0 mmHg Left Ventricle The left ventricle is severely dilated. Severe hypokinesis There is normal left ventricular wall thic kness. LVEF is 20-25%. Grade 1 diastolic dysfunction Right Ventricle The right ventricle is moderately dilated. The right ventricular systolic function is normal. Atria The left atrium is severely dilated. LASVI 67mL.m. The right atrium is severely dilated. Aortic Valve Aortic valve is trileaflet and opens well. Non coronary cusp leaflet is heavily thickened but opens w ell. Mitral Valve The mitral valve is normal in structure. Posterior mitral valve annular calcification noted. There is moderate mitral valve regurgitation noted. There is no mitral valve stenosis. Tricuspid Valve The tricuspid valve is normal in structure. There is trace of tricuspid valve regurgitation noted. Pulmonic Valve The pulmonary valve is normal in structure. There is no pulmonic valvular regurgitation. Great Vessels The aortic root is normal in size. The IVC is normal in size and collapses >50% with inspiration. Pericardium There is no pericardial effusion. Other Information Quality : Adequate Conclusion LVEF is 20-25%. Grade 1 diastolic dysfunction There is normal left ventricular wall thickness. The left ventricle is severely dilated. Severe hypokinesis The right ventricle is moderately dilated. The left atrium is severely dilated. LASVI 67mL.m. The right atrium is severely dilated. Aortic valve is trileaflet and opens well. Non coronary cusp leaflet is heavily thickened but opens w ell. The mitral valve is normal in structure. Posterior mitral valve annular calcification noted. There is no pericardial effusion. Normal pulmonary pressures Study quality was adequate
--- NOTE | 2024-05-11 03:56 | CONS ---
NEPHROLOGY CONSULTATION REASON FOR CONSULTATION: Renal failure. HISTORY OF PRESENT ILLNESS: The patient has multiple medical problems, underlying diabetes, hypertension, obesity, hyperlipidemia, GERD, atrial fibrillation, coronary artery disease and CABG. The patient is brought in with shortness of breath and orthopnea, PND. The patient has been found to have elevated BUN and creatinine also. The patient also has elevated BUN. The patient has denied any other short localizing features. No other aggravating or relieving factor. PAST MEDICAL HISTORY: As above with hypertension, hyperlipidemia, diabetes, coronary artery disease, atrial fibrillation. PAST SURGICAL HISTORY: CABG, hernia. SOCIAL HISTORY: No smoking, alcohol or drug abuse. FAMILY HISTORY: Not pertinent. MEDICATIONS: Reviewed. ALLERGIES: No allergies. REVIEW OF SYSTEMS: CONSTITUTIONAL: Has been weak. No fever, chills or rigors. HEENT: With no headache, no oral ulcers, sore throat or difficulty swallowing. No new vision complaint. RESPIRATORY: No cough, expectoration, hemoptysis or pleuritic pain. CARDIOVASCULAR: Has shortness of breath. No orthopnea, PND, edema present. GASTROINTESTINAL: Negative for nausea, vomiting, diarrhea. GENITOURINARY: Negative for dysuria or hematuria. DERMATOLOGICAL: No rashes, pruritus or skin lesion. ENDOCRINE: No polyuria, polydipsia or polyphagia. PSYCHIATRIC: Negative for anxiety, depression or hallucinations. Other systemic review is unchanged. PHYSICAL EXAMINATION: GENERAL: Pale, no other distress. VITAL SIGNS: Blood pressure is 142/97, pulse is 91, respiratory rate is 18, afebrile. HEENT: Head is atraumatic, normocephalic. Pupils are round and reactive. Sclerae are anicteric. Conjunctivae not pale. Oral mucosa is not dry. NECK: Supple. No masses, bruits. Thyroid is palpable. Neck has no bruits. CHEST: Shows equal bases, prolonged note being resonant in all areas. CARDIAC: Regular rhythm, no rub, no S3, S4. No parasternal heave. ABDOMEN: With no guarding or tenderness. Bowel sounds are normoactive. No free fluid. EXTREMITIES: No edema. No cyanosis or clubbing. NEUROLOGIC: Awake and alert, nonfocal. No cranial nerve palsies. BACK: No tenderness or back deformities. LABORATORY DATA: Reviewed available labs in detail. Labs have shown hemoglobin is 14, white cell count is 15.1. Urine has shown some proteinuria and pyuria and the patient has elevated BUN of 30, creatinine is 1.5, elevated CO2 of 37 and the patient has x-ray chest personally reviewed, increased marking. Tibia, fibula x-ray has been done with soft tissue swelling of the ankle. Abdominal ultrasound has been ordered. Echocardiogram ordered. Chest x-ray reviewed personally and has slightly increased marking. Old records and imaging studies are personally reviewed. Discussed with Dr. Rowell personally this patient. PROBLEMS: * Acute renal failure, most likely cardiorenal syndrome. * Acute heart failure, systolic most likely. * Coronary artery disease with cardiomyopathy and CABG. * Urinary tract infection. * History of atrial fibrillation. * Underlying hypertension. * Underlying leukocytosis. * Underlying diabetes with nephropathy. * Hyperlipidemia and multiple other comorbidities. PLAN: * The patient's plan is being admitted to cardiac floor. * The patient will need IV diuretics. * The patient will continue on other supportive measures with cardiac evaluation. * One Nephro-Logan daily. * Urinalysis. * Urine electrolytes. * Urine osmolality. * The patient will get close followup on renal function, electrolytes and overall status. * IV Dilaudid can be used for pain 0.5 q. 6 hours. * The patient will have DVT and GI prophylaxis. * Avoid any contrast if possible. * Low salt diet. * We have reviewed the old records, x-rays and imaging studies personally and external and previous records have been reviewed and we have ordered the followup labs, CBC, CMP with manual diff also and continued monitoring. Condition remained critical and guarded. TID: [id number] RECEIPT: [id number]
[2024-05-11] MEDS: HEParin 5,000 UNIT VIAL IV ONE (05:11)
[2024-05-11] MEDS: HEParin 25,000 UNITS/250ML D5W 250 ML IV SCH (05:17)
[2024-05-11] MEDS ORDERED: ENOXAPARIN SODIUM 30 MG/0.3 ML SQ SCH (09:00)
[2024-05-11] MEDS ORDERED: Vitamin B Complex/Vit C/Folic Acid PO SCH (09:00)
[2024-05-11 09:49] LABS: BASOPHILS # (AUTO) 0.02 K/uL (0.00-0.20); BASOPHILS % (AUTO) 0.1 % (0.0-5.0); EOSINOPHILS # (AUTO) 0.17 K/uL (0.00-0.70); EOSINOPHILS % (AUTO) 1.2 % (0.0-8.0); IMMATURE GRANULOCYTE ABSOLUTE 0.08 K/uL (0-1); LYMPHOCYTES # (AUTO) 1.8 K/uL (1.0-4.8); LYMPHOCYTES % (AUTO) 13.1 % (21.0-51.0); MEAN CORPUSCULAR HEMOGLOBIN 30.8 pg (27.0-33.0); MEAN CORPUSCULAR HGB CONC 32.4 g/dL (32.0-36.0); MONOCYTES # (AUTO) 0.6 K/uL (0.1-1.0); NEUTROPHILS # (AUTO) 11.2 K/uL (1.8-7.7); PLATELET COUNT (AUTO) 406 K/uL (130-400); RED BLOOD CELL COUNT(AUTO) 4.84 MIL/uL (4.50-6.20); RED CELL DISTRIBUTION WIDTH 13.7 % (11.0-15.5); WHITE BLOOD COUNT (AUTO) 13.8 K/uL (4.8-10.8)
[2024-05-11 10:11] LABS: ALBUMIN 3.6 g/dL (3.5-5.0); BILIRUBIN,TOTAL 0.8 mg/dL (0.2-1.0); CREATININE 1.8 mg/dL (0.5-1.3); MAGNESIUM 2.2 mg/dL (1.80-2.40); PHOSPHORUS 4.1 mg/dL (2.5-4.9); THYROID STIMULATING HORMONE 1.89 uIU/mL (0.36-3.74); TOTAL PROTEIN, SERUM 7.6 g/dL (6.0-8.3); URIC ACID 9.5 mg/dL (2.6-7.2)
[2024-05-11] MEDS: Vitamin B Complex/Vit C/Folic Acid PO SCH (10:30)
--- NOTE | 2024-05-11 11:02 | NUR ---
DCP Patient is Amharic speaking. Patient states lives alone in a first floor apartment with walk in shower. 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 Denies medical devices. States he has a provider for 28 hours from unknown agency. Denies home health services or dialysis. PCP - Luis Baer MD Pharmacy - [facility]. Upon discharge, Ghislaine David, Daughter/Provider [phone] and assist with care, as needed. At this time, is not aware of additional needs. Addendum: 05/11/24 at 1110 by CHAD DARBY RN CM Amended: Links added.
--- NOTE | 2024-05-11 11:23 | HMCIMG ---
Exam Type: Complete abdominal ultrasound with hepatic color-flow Doppler Clinical Information: Pain Comparison: None Findings: The liver shows fatty infiltration and is enlarged, measuring 17.1 and is otherwise unremarkable. Doppler evaluation shows patent portal and hepatic veins. The gallbladder shows no significant abnormalities. Specifically, no calculi are seen. No bile duct dilatation is noted. The gallbladder wall measures 1 mm. The common bile duct measures 5 mm. The right kidney measures 10.2 x 4 .8 cm. The left kidney measures 10.1 x 5 cm. Simple cysts of both kidneys are seen. The kidneys show no hydronephrosis or calculi, masses or other abnormalities. The pancreas is suboptimally evaluated. The spleen is unremarkable. The aorta and inferior vena cava show no significant abnormalities. IMPRESSION: FATTY LIVER INFILTRATION AND HEPATOMEGALY. OTHERWISE NORMAL ABDOMINAL ULTRASOUND.
--- NOTE | 2024-05-11 12:24 | NUR ---
PENDING FAMILY TO BRING HOME MEDICATION, PT STATES HE WILL CALL SOMEONE AT HOME TO BRING THEM.
--- NOTE | 2024-05-11 13:11 | NUR ---
1300 CALLED A SECOND TIME TO GIVE REPORT WAS TOLD SKIP NURSE IN ROOM WITH PT, ASKED IF SHE CAN CALL MY SPECTRA BACK FOR REPORT.
--- NOTE | 2024-05-11 13:57 | NUR ---
REPORT GIVEN SKIP TRACY PT UP TO ROOM AT 1345 PT STABLE AAOX4 NO DISTRESS NO C/O PAIN, PT HAS HIS CLOTHING AND PERSONAL BELONGINGS.
[2024-05-11] MEDS ORDERED: OMEP40CA21 PO (14:16)
[2024-05-11] MEDS ORDERED: METO-391 PO (14:16)
[2024-05-11] MEDS ORDERED: FURO20TA4 PO (14:16)
[2024-05-11] MEDS ORDERED: ATOR40TA71 PO (14:16)
[2024-05-11] MEDS: COLCHicine 0.6 MG TABLET PO ONE (15:12)
[2024-05-11] MEDS: VITAMIN E 400 UNIT CAPSULE PO SCH (15:12)
--- NOTE | 2024-05-11 15:44 | PN ---
NEPHROLOGY PROGRESS NOTE Date/Time Patient Seen: May 11, 2024 SUBJECTIVE: This is an 83-year-old male with a past medical history of diabetes mellitus type 2, obesity, hypertension, and crit, atrial fibrillation, coronary artery disease with prior history of CABG. He presented to emergency room with complaints of shortness of breath, or nausea and PND. He was found to have elevated BUN and creatinine. The patient has denied any other short localizing features. No other aggravating or relieving factor. Renal function remains elevated Electrolytes are stable. Uric acid noted to be 9.5 Mg/dL. Abdominal ultrasound showed fatty liver infiltration and hepatomegaly. No hydro nephrosis. He was seen in the emergency room, complaining of lower extremity cramps. No family at the bedside Prognosis remains guarded REVIEW OF SYSTEMS: GENERAL: Positive for shortness of breath NEUROLOGIC: Negative for any blurry vision, blind spots, double vision, facial asymmetry, dysphagia, dysarthria, hemiparesis, hemisensory deficits, vertigo, ataxia. HEENT: Negative for any head trauma, neck trauma, neck stiffness, photophobia, phonophobia, sinusitis, rhinitis. CARDIAC: Negative for any chest pain, dyspnea on exertion, paroxysmal nocturnal dyspnea, peripheral edema. PULMONARY: Negative for any shortness of breath, wheezing, COPD, or TB exposure. GASTROINTESTINAL: Negative for any abdominal pain, nausea, vomiting, bright red blood per rectum, melena. GENITOURINARY: Negative for any dysuria, hematuria, incontinence. INTEGUMENTARY: Negative for any rashes, cuts, insect bites. RHEUMATOLOGIC: Negative for any joint pains, photosensitive rashes, history of vasculitis or kidney problems. HEMATOLOGIC: Negative for any abnormal bruising, frequent infections or bleeding. Vital Signs (last 8hr) Date Time Temp Pulse Resp B/P (MAP) Pulse Ox O2 Delivery O2 Flow Rate FiO2 05/11/24 13:45 98.8 83 20 132/57 97 Room Air 05/11/24 13:45 96 Room Air* 0 05/11/24 12:06 97.9 71 18 144/78 97 Room Air* 0 05/11/24 08:57 97.9 71 20 143/89 98 Room Air* 0 05/11/24 07:44 65 20 N/A Room Air 0.0 05/11/24 07:42 65 20 PHYSICAL EXAM: GENERAL: Alert and oriented x 3. No acute distress. Well-nourished. EYES: EOMI. Anicteric. HENT: Moist mucous membranes. No scleral icterus. No cervical lymphadenopathy. LUNGS: Clear to auscultation bilaterally. No accessory muscle use. CARDIOVASCULAR: Regular rate and rhythm. No murmur. No JVD. ABDOMEN: Soft, non-tender and non-distended. No palpable masses. EXTREMITIES: No edema. Non-tender. SKIN: No rashes or lesions. Warm. NEUROLOGIC: No focal neurological deficits. CN II-XII grossly intact, but not in dividually tested. PSYCHIATRIC: Cooperative. Appropriate mood and affect. Current Medications Medications (Trade) Dose Ordered Sig/Linda Route PRN Reason Start Time Stop Time Status Last Admin Dose Admin Acetaminophen (TYLenol 325MG TAB) 650 mg Q6H PRN PO MILD PAIN (1-3) 05/10/24 14:30 06/09/24 14:29 05/11/24 12:27 650 MG Budesonide (Pulmicort 0.5 Mg/2ml) 0.5 mg BIDRESP IH 05/10/24 18:00 06/09/24 17:59 05/11/24 07:42 0.5 MG Ceftriaxone Sodium (ROCEphine 1G INJ) 1 gm Q24H IVPB 05/10/24 14:30 05/20/24 14:29 05/11/24 15:12 1 GM Chlordiazepoxide HCl (LIBrium 25 MG CAP) 25 mg Q6H PRN PO ALCOHOL WITHDRAWAL PROTOCOL 05/10/24 16:00 05/17/24 15:59 Enoxaparin Sodium (Lovenox) 30 mg DAILY SQ 05/11/24 09:00 05/11/24 00:20 DC Furosemide (LASix 40MG VIAL) 40 mg BID IV 05/10/24 21:00 05/11/24 00:18 DC 05/10/24 21:19 40 MG Heparin Sodium/ Dextrose 250 ml @ 0 mls/hr PROTOCOL IV 05/11/24 00:30 06/10/24 00:29 05/11/24 05:17 15.72 MLS/HR Insulin Human Regular (humuLIN R 100 UNIT/ML 3ML) INSULIN SLIDING SCAL... ACHS SQ 05/10/24 16:30 06/09/24 16:29 Ipratropium Victoria (AtrovENT UD) 0.5 mg Q6H PRN IH SHORTNESS OF BREATH 05/10/24 14:30 06/09/24 14:29 Lorazepam (AtiVAN) 1 mg Q4H PRN IVP ALCOHOL WITHDRAWAL PROTOCOL 05/10/24 16:00 05/17/24 15:59 Metoprolol Succinate (TopROL XL) 50 mg HS PO 05/10/24 21:00 06/09/24 20:59 05/10/24 22:02 50 MG Morphine Sulfate (morPHINE 2MG SYG) 2 mg Q8H PRN IVP SEVERE PAIN (7-10) 05/10/24 19:30 05/17/24 19:29 05/10/24 19:34 2 MG Ondansetron HCl (zoFRAN 4MG INJ) 4 mg Q6H PRN IVP NAUSEA/VOMITING 05/10/24 14:30 06/09/24 14:29 Pantoprazole Sodium (PROTonix 40MG TAB) 40 mg Q24H PO 05/10/24 14:30 06/09/24 14:29 05/11/24 15:12 40 MG Pharmacy Profile Note (Pharmacy Communication) 1 each PROTOCOL PRN MISC ETOH Withdrawal Score changes 05/10/24 16:00 05/17/24 15:59 Thiamine HCl (Vitamin B-1) 100 mg Q24H IVP 05/10/24 15:30 06/09/24 15:29 05/11/24 15:13 100 MG Vitamin B Complex/ Vit C/Folic Acid (Nephrovite Tablet) 1 cap DAILY PO 05/11/24 09:00 05/10/24 22:47 DC Vitamin B Complex/ Vit C/Folic Acid (Nephrovite Tablet) 1 cap DAILY PO 05/11/24 09:00 06/10/24 08:59 05/11/24 10:30 1 CAP Vitamin E (Vitamin E) 400 unit DAILY PO 05/11/24 14:00 06/10/24 13:59 05/11/24 15:12 400 UNIT LABORATORY: [ ] Hematology Labs: Test 05/11/24 09:28 Range/Units White Blood Count 13.8 H 4.8-10.8 K/uL Red Blood Count 4.84 4.50-6.20 MIL/uL Hemoglobin 14.9 14.0-18.0 g/dL Hematocrit 46.0 42-54 % Mean Corpuscular Volume 95.0 79-99 fL Mean Corpuscular Hemoglobin 30.8 27.0-33.0 pg Mean Corpuscular Hemoglobin Concent 32.4 32.0-36.0 g/dL Red Cell Distribution Width 13.7 11.0-15.5 % Platelet Count 406 H 130-400 K/uL Mean Platelet Volume 10.1 7.5-10.5 fL Immature Granulocyte % (Auto) 0.6 0-1 % Neutrophils (%) (Auto) 81.0 H 40.0-77.0 % Lymphocytes (%) (Auto) 13.1 L 21.0-51.0 % Monocytes (%) (Auto) 4.0 3.0-13.0 % Eosinophils (%) (Auto) 1.2 0.0-8.0 % Basophils (%) (Auto) 0.1 0.0-5.0 % Neutrophils # (Auto) 11.2 H 1.8-7.7 K/uL Lymphocytes # (Auto) 1.8 1.0-4.8 K/uL Monocytes # (Auto) 0.6 0.1-1.0 K/uL Eosinophils # (Auto) 0.17 0.00-0.70 K/uL Basophils # (Auto) 0.02 0.00-0.20 K/uL Absolute Immature Granulocyte (auto 0.08 0-1 K/uL Nucleated Red Blood Cells 0.0 0.0-0.19 % Chemistry Labs: Test 05/11/24 11:39 05/11/24 09:28 05/10/24 10:43 05/10/24 09:28 Range/Units Whole Blood Glucose 94 70-110 MG/DL Sodium Level 139 136-145 mmol/L Potassium Level 4.0 3.5-5.1 mmol/L Chloride Level 98 L 101-111 mmol/L Carbon Dioxide Level 36 H 21-32 mmol/L Blood Urea Nitrogen 38 H 7-18 mg/dL Creatinine 1.8 H 0.5-1.3 mg/dL Glomerular Filtration Rate Calc 37 >90 mL/min Random Glucose 204 #H 70-105 mg/dL Uric Acid 9.5 H 2.6-7.2 mg/dL Total Calcium 9.4 8.5-10.1 mg/dL Phosphorus Level 4.1 2.5-4.9 mg/dL Magnesium Level 2.20 1.80-2.40 mg/dL Total Bilirubin 0.8 0.2-1.0 mg/dL Aspartate Amino Transf (AST/SGOT) 20 10-37 U/L Alanine Aminotransferase (ALT/SGPT) 30 12-78 U/L Alkaline Phosphatase 114 50-136 U/L Total Protein 7.6 6.0-8.3 g/dL Albumin 3.6 3.5-5.0 g/dL Thyroid Stimulating Hormone (TSH) 1.89 0.36-3.74 uIU/mL Lactic Acid Level 1.3 0.8-2.5 mmol/L B-Type Natriuretic Peptide 648 H 0-100 pg/mL Hemoglobin A1c 6.4 H 4.0-6.0 % Estimated Average Glucose (eAG) 137 H 70-126 mg/dL Direct Bilirubin 0.3 0.0-0.3 mg/dL Troponin I High Sensitivity 28 4-75 ng/L Coagulation Labs: Test 05/11/24 10:33 05/10/24 09:28 Range/Units Activated Partial Thromboplast Time 139.0 *H 26.3-35.5 SEC Prothrombin Time 11.5 9.6-11.6 SEC Prothromb Time International Ratio 1.09 0.85-1.15 DIAGNOSTICS / RADIOLOGY: REASON: SEVERE PAIN, R/O ANY FRACTURES ORDERING PHYSICIAN: LOU MALIK MD PROCEDURE: TIBFIB LT - TIBIA/FIBULA 2VWS LT Exam Type: TIBIA/FIBULA 2VWS LT, ANKLE COMP 3VWS LT Clinical Information: SEVERE PAIN, R/O ANY FRACTURES Comparison: None Findings: No acute fractures or dislocations. No bone destruction. Calcaneal spurs. Soft tissue swelling of the ankle. IMPRESSION: Soft tissue swelling of the ankle. DICTATED BY: JESUS MARTINEZ MD DATE: 05/10/241951 REASON: SEVERE PAIN, R/O ANY FRACTURES ORDERING PHYSICIAN: LOU MALIK MD PROCEDURE: [id number] - ANKLE COMP 3VWS LT Exam Type: TIBIA/FIBULA 2VWS LT, ANKLE COMP 3VWS LT Clinical Information: SEVERE PAIN, R/O ANY FRACTURES Comparison: None Findings: No acute fractures or dislocations. No bone destruction. Calcaneal spurs. Soft tissue swelling of the ankle. IMPRESSION: Soft tissue swelling of the ankle. DICTATED BY: JESUS MARTINEZ MD DATE: 05/10/241951 REASON: SEVERE PAIN, R/O ANY FRACTURES ORDERING PHYSICIAN: LOU MALIK MD PROCEDURE: [id number] - ANKLE COMP 3VWS LT Exam Type: TIBIA/FIBULA 2VWS LT, ANKLE COMP 3VWS LT Clinical Information: SEVERE PAIN, R/O ANY FRACTURES Comparison: None Findings: No acute fractures or dislocations. No bone destruction. Calcaneal spurs. Soft tissue swelling of the ankle. IMPRESSION: Soft tissue swelling of the ankle. DICTATED BY: JESUS MARTINEZ MD DATE: 05/10/241951 REASON: hx of chronic drinking, r/o cirrhosis of the liver/SHILA ORDERING PHYSICIAN: LOU MALIK MD PROCEDURE: ABDOMEN - US ABDOMINAL COMPLETE Exam Type: Complete abdominal ultrasound with hepatic color-flow Doppler Clinical Information: Pain Comparison: None Findings: The liver shows fatty infiltration and is enlarged, measuring 17.1 and is otherwise unremarkable. Doppler evaluation shows patent portal and hepatic veins. The gallbladder shows no significant abnormalities. Specifically, no calculi are seen. No bile duct dilatation is noted. The gallbladder wall measures 1 mm. The common bile duct measures 5 mm. The right kidney measures 10.2 x 4 .8 cm. The left kidney measures 10.1 x 5 cm. Simple cysts of both kidneys are seen. The kidneys show no hydronephrosis or calculi, masses or other abnormalities. The pancreas is suboptimally evaluated. The spleen is unremarkable. The aorta and inferior vena cava show no significant abnormalities. IMPRESSION: FATTY LIVER INFILTRATION AND HEPATOMEGALY. OTHERWISE NORMAL ABDOMINAL ULTRASOUND. DICTATED BY: JESUS MARTINEZ MD DATE: 05/11/241119 REASON: suspected heart failure exacerbation,. Dr. Moreno to read ORDERING PHYSICIAN: LOU MALIK MD PROCEDURE: ECHO CMP - ECHO 2-D COMPLETE APPROVED REPORT EXAM: Two-dimensional and M-mode echocardiogram with Doppler and color Doppler. INDICATION ICD: Suspected heart failure exacerbation 2D Dimensions RVDd 4.9 cm LVEF(%) 15.9 (>50%) LVEF(%, simp.) 24 % IVSd 0.9 (0.7-1.1cm) FS(%) 7 % LA ESV INDEX (BP) 66.86 mL/m2 LVDd 6.0 (3.8-5.6cm) LA (2D) 5.3 (1.6-4.0cm) PWd 1.2 (0.7-1.1cm) Ao Root(2D) 3.3 (2.0-3.7cm) IVSs 1.0 cm LVOT diam 2.3 (1.8-2.4cm) LVDs 5.6 (2.5-4.0cm) IVC diam 1.7 cm PWs 1.3 cm Deformation Strain Apical 4 -7.0 % Apical 2 -3.0 % Apical 3 -8.0 % Global Strain -6.0 % M-Mode Dimensions EPSS 1.9 cm LA (MM) 6.0 (1.6-4.0cm) Ao Root(MM) 3.4 (2.0-3.7cm) Aortic Valve AoV Vmax 1.2 m/s Ao Peak GR 6.0 mmHg LVOT Vmax 0.8 m/s ZACKARY (VMAX) 2.9 cm2 Ao Mean GR 4.0 mmHg Mitral Valve MV E Vmax 97.6 cm/s DECEL Time 112 ms MR VTI 176 cm2 P 1/2 T 42 ms MVA (PHT) 5.3 cm2 TDI E/E' Medial 16.3 E/E' Lateral 12.2 Medial E' Peak V 6.00 cm/s Lateral E' Peak V 8.00 cm/s Pulmonary Valve PV Vmax 0.7 m/s Tricuspid Valve TR Vmax 2.0 m/s RAP (EST) 3 mmHg RVSP 19.0 mmHg TR Peak GR 16.0 mmHg Left Ventricle The left ventricle is severely dilated. Severe hypokinesis There is normal left ventricular wall thickness. LVEF is 20-25%. Grade 1 diastolic dysfunction Right Ventricle The right ventricle is moderately dilated. The right ventricular systolic function is normal. Atria The left atrium is severely dilated. LASVI 67mL.m. The right atrium is severely dilated. Aortic Valve Aortic valve is trileaflet and opens well. Non coronary cusp leaflet is heavily thickened but opens well. Mitral Valve The mitral valve is normal in structure. Posterior mitral valve annular calcification noted. There is moderate mitral valve regurgitation noted. There is no mitral valve stenosis. Tricuspid Valve The tricuspid valve is normal in structure. There is trace of tricuspid valve regurgitation noted. Pulmonic Valve The pulmonary valve is normal in structure. There is no pulmonic valvular r egurgitation. Great Vessels The aortic root is normal in size. The IVC is normal in size and collapses >50% with inspiration. Pericardium There is no pericardial effusion. Other Information Quality : Adequate Conclusion LVEF is 20-25%. Grade 1 diastolic dysfunction There is normal left ventricular wall thickness. The left ventricle is severely dilated. Severe hypokinesis The right ventricle is moderately dilated. The left atrium is severely dilated. LASVI 67mL.m. The right atrium is severely dilated. Aortic valve is trileaflet and opens well. Non coronary cusp leaflet is heavily thickened but opens well. The mitral valve is normal in structure. Posterior mitral valve annular calcification noted. There is no pericardial effusion. Normal pulmonary pressures Study quality was adequate DICTATED BY: CHRISTIAN MORTON MD DATE: 05/10/24 1707 REASON: WEAKNESS ORDERING PHYSICIAN: ZULY OLIVEIRA DO PROCEDURE: [id number] - CHEST 1VW Exam Type: CHEST 1VW Clinical Information: WEAKNESS Comparison: None Findings: There is cardiomegaly and there is status post median sternotomy. The lungs are clear of infiltrates. Impression: Clear lungs. DICTATED BY: JESUS MARTINEZ MD DATE: 05/10/24 1003 ASSESSMENT: Acute systolic heart failure exacerbation Acute kidney injury, POA Urinary tract infection, POA Underlying history of atrial fibrillation, POA Query if patient is on anticoagulation as outpatient, POA Hypertension, POA Octogenarian, POA Frailty, POA Obesity, POA Leukocytosis, POA GERD, POA Prior history of alcohol use, POA History of type 2 diabetes mellitus, POA PLAN: Labs, diagnostic, radiologic exams reviewed and interpreted by myself and supervising physician. We have reviewed external records in detail He may have one dose of colchicine Start vitamin-E 400 units p.o. daily Require close monitoring of renal function and electrolytes Order CBC, CMP, and electrolytes in am Continue with antibiotics Renal diabetic diet BiPAP as necessary, for respiratory distress Monitor blood pressure adjust medication doses as needed Avoid hypotensive episodes May use Dilaudid 0.5 mg IV every 6 hours as needed for severe pain Monitor blood sugars Strict intake, output, and daily weight should be monitored Please renally adjust medications Avoid nephrotoxic and nonsteroidal drugs Avoid contrast if possible Will continue to monitor renal function, anemia, electrolytes Treatment plan discussed with patient Questions were answered We have discussed with the other team physicians in detail about the care plan We will continue to monitor the patient closely ATTESTATION BY PHYSICIAN I have seen and examined the patient. I reviewed the documentation, medical decision making, and treatment plan as noted by the mid-level provider above. I agree with the findings and plan of care. FELIX LOPEZ MD, [facility] May 11, 2024 15:44
[2024-05-11] MEDS: furoSEMIDE 40MG VIAL IV SCH (17:29)
--- NOTE | 2024-05-11 18:21 | PN ---
[facility] PROGRESS NOTE Date of Service: May 11, 2024 Time of Service: 17:54 SUBJECTIVE: This is a case of 83-year-old male with a past medical history of type 2 diabetes mellitus, obesity, hypertension, GERD, CAD[s/p CABG] presented to the ER with the complaints of generalized body weakness and significant lower extremity edema, which has been present for the past couple of months. He also reports experiencing dyspnea on exertion, paroxysmal nocturnal dyspnea and orthopnea. Initial labs showed WBC 15.1, hemoglobin 14.3, BUN 30, creatinine 1.4, BNP 648. Chest x-ray showed bilateral infiltrates concerning for pulmonary edema. EKG showed atrial fibrillation. Nephrology and cardiology consult was obtained. 05/11/2024 Patient is seen and examined at the bedside. He is complaining of left lower extremity pain. Denies fever, chills, difficulty in breathing, chest pain, palpitations, burning sensation while urinating, nausea, vomiting. Patient is currently on heparin drip at the rate 15.7 mL/hour. Labs WBC improved from 15.1-13.8, BUN 38, creatinine increased from 1.5-1.8, uric acid 9.5. Urine culture resulted in Gram-negative rods. Preliminary blood culture results are negative. Bilateral venous Doppler lower extremity did not show evidence of DVT. 2D echo showed LVEF is 20-25%. Grade 1 diastolic dysfunction. Abdominal Ultrasound revealed fatty liver infiltration and hepatomegaly. REVIEW OF SYSTEMS CONSTITUTIONAL: Denies fevers, chills, or night sweats. No unintentional weight loss reported. NEUROLOGICAL: Denies headache, amaurosis fugax, motor weakness, sensory deficit, vertigo/spinning sensation, gait abnormalities, or tremors. ENT: No hearing loss, otalgia, otorrhea, rhinitis, rhinorrhea, hoarseness, or sore throat. CARDIOVASCULAR: PND, orthopnea, shortness of breath, dyspnea on exertion, significant lower extremity edema PULMONARY: Denies any shortness of breath, cough, phlegm/sputum, hemoptysis, pleuritic chest pain. SLEEP: Denies morning headaches, daytime somnolence or napping. Denies difficulty falling asleep, staying asleep, waking from sleep. Denies knowledge of snoring. GASTROINTESTINAL: Denies any type of dysphagia to either liquids or solids. Denies nausea, vomiting, pyrosis, early satiety, abdominal pain, diarrhea, constipation, or changes in stool consistency or caliber. Denies coffee-ground emesis, hematemesis, hematochezia, or melanotic stools. GENITOURINARY: Denies frequency, urgency, nocturia, hematuria or incontinence (Storage/Irritative symptoms.) Low urinary stream, straining to void, urinary intermittency or hesitancy, splitting of the voiding stream, terminal dribbling. ENDOCRINOLOGIC: Denies polyuria, polydipsia, polyphagia or heat/cold intolerances. HEMATOLOGIC: Denies thrombophilia/previous clots, or coagulopathy/bleeding disorders. ONCOLOGIC: Denies personal history of malignancy. DERMATOLOGIC: Denies rashes or pruritus. PSYCHIATRIC: Denies any suicidal or homicidal ideation. Denies hallucinations. PHYSICAL EXAM GENERAL APPEARANCE: The patient is awake, alert, and oriented, in no acute cardiopulmonary distress. NEUROLOGICAL: Cranial nerves II-XII grossly intact. Motor is 5/5 in bilateral upper and lower extremities proximal to distal. No sensory deficits. No focal deficits noted of the bilateral upper or lower extremity HEENT: Face is symmetric. Pupils are equal and reactive. Extraocular movements are intact. NECK: Supple. No JVD. No thyromegaly. No submental, submandibular, pre- /postauricular, occipital or supraclavicular lymphadenopathy. CHEST: Normal chest expansion. No Telemetry. LUNGS: crackles noted of the bilateral lung bases CARDIOVASCULAR: Regular. S1 and S2 normal. No appreciable rubs, murmurs or gallops. ABDOMEN: Soft, nontender, and nondistended. There is no rebound, voluntary guarding, or rigidity. : Deferred. No Cristina. EXTREMITIES: 2+ pitting edema noted of the bilateral lower extremities SKIN: No skin breakdown. Vital Signs (last 8hr) Date Time Temp Pulse Resp B/P (MAP) Pulse Ox O2 Delivery O2 Flow Rate FiO2 05/11/24 16:00 97.9 75 20 117/81 96 Room Air 05/11/24 13:45 98.8 83 20 132/57 97 Room Air 05/11/24 13:45 96 Room Air* 0 21 05/11/24 12:06 97.9 71 18 144/78 97 Room Air* 0 21 LABS: Laboratory: Test 05/11/24 16:04 05/11/24 10:33 05/11/24 09:28 05/10/24 10:43 Range/Units Whole Blood Glucose 81 70-110 MG/DL Activated Partial Thromboplast Time 139.0 *H 26.3-35.5 SEC White Blood Count 13.8 H 4.8-10.8 K/uL Red Blood Count 4.84 4.50-6.20 MIL/uL Hemoglobin 14.9 14.0-18.0 g/dL Hematocrit 46.0 42-54 % Mean Corpuscular Volume 95.0 79-99 fL Mean Corpuscular Hemoglobin 30.8 27.0-33.0 pg Mean Corpuscular Hemoglobin Concent 32.4 32.0-36.0 g/dL Red Cell Distribution Width 13.7 11.0-15.5 % Platelet Count 406 H 130-400 K/uL Mean Platelet Volume 10.1 7.5-10.5 fL Immature Granulocyte % (Auto) 0.6 0-1 % Neutrophils (%) (Auto) 81.0 H 40.0-77.0 % Lymphocytes (%) (Auto) 13.1 L 21.0-51.0 % Monocytes (%) (Auto) 4.0 3.0-13.0 % Eosinophils (%) (Auto) 1.2 0.0-8.0 % Basophils (%) (Auto) 0.1 0.0-5.0 % Neutrophils # (Auto) 11.2 H 1.8-7.7 K/uL Lymphocytes # (Auto) 1.8 1.0-4.8 K/uL Monocytes # (Auto) 0.6 0.1-1.0 K/uL Eosinophils # (Auto) 0.17 0.00-0.70 K/uL Basophils # (Auto) 0.02 0.00-0.20 K/uL Absolute Immature Granulocyte (auto 0.08 0-1 K/uL Nucleated Red Blood Cells 0.0 0.0-0.19 % Sodium Level 139 136-145 mmol/L Potassium Level 4.0 3.5-5.1 mmol/L Chloride Level 98 L 101-111 mmol/L Carbon Dioxide Level 36 H 21-32 mmol/L Blood Urea Nitrogen 38 H 7-18 mg/dL Creatinine 1.8 H 0.5-1.3 mg/dL Glomerular Filtration Rate Calc 37 >90 mL/min Random Glucose 204 #H 70-105 mg/dL Uric Acid 9.5 H 2.6-7.2 mg/dL Total Calcium 9.4 8.5-10.1 mg/dL Phosphorus Level 4.1 2.5-4.9 mg/dL Magnesium Level 2.20 1.80-2.40 mg/dL Total Bilirubin 0.8 0.2-1.0 mg/dL Aspartate Amino Transf (AST/SGOT) 20 10-37 U/L Alanine Aminotransferase (ALT/SGPT) 30 12-78 U/L Alkaline Phosphatase 114 50-136 U/L Total Protein 7.6 6.0-8.3 g/dL Albumin 3.6 3.5-5.0 g/dL Thyroid Stimulating Hormone (TSH) 1.89 0.36-3.74 uIU/mL Lactic Acid Level 1.3 0.8-2.5 mmol/L B-Type Natriuretic Peptide 648 H 0-100 pg/mL Test 05/10/24 09:33 05/10/24 09:28 Range/Units Urine Color YELLOW YELLOW Urine Appearance CLEAR CLEAR Urine pH 6.0 5.0-8.0 Urine Specific Marston 1.028 1.001-1.031 Urine Protein 70 H NEGATIVE mg/dL Urine Glucose (UA) NEGATIVE NEGATIVE mg/dL Urine Ketones NEGATIVE NEGATIVE mg/dL Urine Occult Blood NEGATIVE NEGATIVE Urine Nitrate NEGATIVE NEGATIVE Urine Bilirubin NEGATIVE NEGATIVE mg/dL Urine Urobilinogen 0.2 0.2-1.0 mg/dL Urine Leukocyte Esterase 75 H NEGATIVE Roger/uL Urine RBC 0-1 0-1 /HPF Urine WBC 26-50 H 0-1 /HPF Urine Squamous Epithelial Cells RARE 0-2 /HPF Urine Bacteria RARE None Seen /HPF Urine Hyaline Casts 2-5 H 0-1 /LPF /LPF Urine Random Creatinine 168.63 H 30-135 mg/dL Urine Random Sodium 96 40-220 mmol/l Urine Random Potassium 56 25-125 mmol/L Urine Random Chloride 71 L 110-250 mmol/L Prothrombin Time 11.5 9.6-11.6 SEC Prothromb Time International Ratio 1.09 0.85-1.15 Hemoglobin A1c 6.4 H 4.0-6.0 % Estimated Average Glucose (eAG) 137 H 70-126 mg/dL Direct Bilirubin 0.3 0.0-0.3 mg/dL Troponin I High Sensitivity 28 4-75 ng/L Current Medications Medications (Trade) Dose Ordered Sig/Linda Route PRN Reason Start Time Stop Time Status Last Admin Dose Admin Acetaminophen (TYLenol 325MG TAB) 650 mg Q6H PRN PO MILD PAIN (1-3) 05/10/24 14:30 06/09/24 14:29 05/11/24 12:27 650 MG Budesonide (Pulmicort 0.5 Mg/2ml) 0.5 mg BIDRESP IH 05/10/24 18:00 06/09/24 17:59 05/11/24 07:42 0.5 MG Ceftriaxone Sodium (ROCEphine 1G INJ) 1 gm Q24H IVPB 05/10/24 14:30 05/20/24 14:29 05/11/24 15:12 1 GM Chlordiazepoxide HCl (LIBrium 25 MG CAP) 25 mg Q6H PRN PO ALCOHOL WITHDRAWAL PROTOCOL 05/10/24 16:00 05/17/24 15:59 Enoxaparin Sodium (Lovenox) 30 mg DAILY SQ 05/11/24 09:00 05/11/24 00:20 DC Furosemide (LASix 40MG VIAL) 40 mg BID IV 05/10/24 21:00 05/11/24 00:18 DC 05/10/24 21:19 40 MG Furosemide (LASix 40MG VIAL) 40 mg DAILY17 IV 05/11/24 17:30 06/10/24 17:29 05/11/24 17:29 40 MG Heparin Sodium/ Dextrose 250 ml @ 0 mls/hr PROTOCOL IV 05/11/24 00:30 06/10/24 00:29 05/11/24 05:17 15.72 MLS/HR Insulin Human Regular (humuLIN R 100 UNIT/ML 3ML) INSULIN SLIDING SCAL... ACHS SQ 05/10/24 16:30 06/09/24 16:29 Ipratropium Hawks (AtrovENT UD) 0.5 mg Q6H PRN IH SHORTNESS OF BREATH 05/10/24 14:30 06/09/24 14:29 Lorazepam (AtiVAN) 1 mg Q4H PRN IVP ALCOHOL WITHDRAWAL PROTOCOL 05/10/24 16:00 05/17/24 15:59 Metoprolol Succinate (TopROL XL) 50 mg HS PO 05/10/24 21:00 4/9/25 20:59 05/10/24 22:02 50 MG Morphine Sulfate (morPHINE 2MG SYG) 2 mg Q8H PRN IVP SEVERE PAIN (7-10) 05/10/24 19:30 05/17/24 19:29 05/10/24 19:34 2 MG Ondansetron HCl (zoFRAN 4MG INJ) 4 mg Q6H PRN IVP NAUSEA/VOMITING 05/10/24 14:30 06/09/24 14:29 Pantoprazole Sodium (PROTonix 40MG TAB) 40 mg Q24H PO 05/10/24 14:30 06/09/24 14:29 05/11/24 15:12 40 MG Pharmacy Profile Note (Pharmacy Communication) 1 each PROTOCOL PRN MISC ETOH Withdrawal Score changes 05/10/24 16:00 05/17/24 15:59 Thiamine HCl (Vitamin B-1) 100 mg Q24H IVP 05/10/24 15:30 06/09/24 15:29 05/11/24 15:13 100 MG Vitamin B Complex/ Vit C/Folic Acid (Nephrovite Tablet) 1 cap DAILY PO 05/11/24 09:00 05/10/24 22:47 DC Vitamin B Complex/ Vit C/Folic Acid (Nephrovite Tablet) 1 cap DAILY PO 05/11/24 09:00 06/10/24 08:59 05/11/24 10:30 1 CAP Vitamin E (Vitamin E) 400 unit DAILY PO 05/11/24 14:00 06/10/24 13:59 05/11/24 15:12 400 UNIT DIAGNOSTICS / RADIOLOGY: ROCEDURE: ABDOMEN - US ABDOMINAL COMPLETE Exam Type: Complete abdominal ultrasound with hepatic color-flow Doppler Clinical Information: Pain Comparison: None Findings: The liver shows fatty infiltration and is enlarged, measuring 17.1 and is otherwise unremarkable. Doppler evaluation shows patent portal and hepatic veins. The gallbladder shows no significant abnormalities. Specifically, no calculi are seen. No bile duct dilatation is noted. The gallbladder wall measures 1 mm. The common bile duct measures 5 mm. The right kidney measures 10.2 x 4 .8 cm. The left kidney measures 10.1 x 5 cm. Simple cysts of both kidneys are seen. The kidneys show no hydronephrosis or calculi, masses or other abnormalities. The pancreas is suboptimally evaluated. The spleen is unremarkable. The aorta and inferior vena cava show no significant abnormalities. IMPRESSION: FATTY LIVER INFILTRATION AND HEPATOMEGALY. OTHERWISE NORMAL ABDOMINAL ULTRASOUND. PROCEDURE: ECHO CMP - ECHO 2-D COMPLETE APPROVED REPORT EXAM: Two-dimensional and M-mode echocardiogram with Doppler and color Doppler. INDICATION ICD: Suspected heart failure exacerbation 2D Dimensions RVDd 4.9 cm LVEF(%) 15.9 (>50%) LVEF(%, simp.) 24 % IVSd 0.9 (0.7-1.1cm) FS(%) 7 % LA ESV INDEX (BP) 66.86 mL/m2 LVDd 6.0 (3.8-5.6cm) LA (2D) 5.3 (1.6-4.0cm) PWd 1.2 (0.7-1.1cm) Ao Root(2D) 3.3 (2.0-3.7cm) IVSs 1.0 cm LVOT diam 2.3 (1.8-2.4cm) LVDs 5.6 (2.5-4.0cm) IVC diam 1.7 cm PWs 1.3 cm Deformation Strain Apical 4 -7.0 % Apical 2 -3.0 % Apical 3 -8.0 % Global Strain -6.0 % M-Mode Dimensions EPSS 1.9 cm LA (MM) 6.0 (1.6-4.0cm) Ao Root(MM) 3.4 (2.0-3.7cm) Aortic Valve AoV Vmax 1.2 m/s Ao Peak GR 6.0 mmHg LVOT Vmax 0.8 m/s ZACKARY (VMAX) 2.9 cm2 Ao Mean GR 4.0 mmHg Mitral Valve MV E Vmax 97.6 cm/s DECEL Time 112 ms MR VTI 176 cm2 P 1/2 T 42 ms MVA (PHT) 5.3 cm2 TDI E/E' Medial 16.3 E/E' Lateral 12.2 Medial E' Peak V 6.00 cm/s Lateral E' Peak V 8.00 cm/s Pulmonary Valve PV Vmax 0.7 m/s Tricuspid Valve TR Vmax 2.0 m/s RAP (EST) 3 mmHg RVSP 19.0 mmHg TR Peak GR 16.0 mmHg Left Ventricle The left ventricle is severely dilated. Severe hypokinesis There is normal left ventricular wall thickness. LVEF is 20-25%. Grade 1 diastolic dysfunction Right Ventricle The right ventricle is moderately dilated. The right ventricular systolic function is normal. Atria The left atrium is severely dilated. LASVI 67mL.m. The right atrium is severely dilated. Aortic Valve Aortic valve is trileaflet and opens well. Non coronary cusp leaflet is heavily thickened but opens well. Mitral Valve The mitral valve is normal in structure. Posterior mitral valve annular calcification noted. There is moderate mitral valve regurgitation noted. There is no mitral valve stenosis. Tricuspid Valve The tricuspid valve is normal in structure. There is trace of tricuspid valve regurgitation noted. Pulmonic Valve The pulmonary valve is normal in structure. There is no pulmonic valvular regurgitation. Great Vessels The aortic root is normal in size. The IVC is normal in size and collapses >50% with inspiration. Pericardium There is no pericardial effusion. Other Information Quality : Adequate Conclusion LVEF is 20-25%. Grade 1 diastolic dysfunction There is normal left ventricular wall thickness. The left ventricle is severely dilated. Severe hypokinesis The right ventricle is moderately dilated. The left atrium is severely dilated. LASVI 67mL.m. The right atrium is severely dilated. Aortic valve is trileaflet and opens well. Non coronary cusp leaflet is heavily thickened but opens well. The mitral valve is normal in structure. Posterior mitral valve annular calcification noted. There is no pericardial effusion. Normal pulmonary pressures Study quality was adequate PROCEDURE: [id number] - ANKLE COMP 3VWS LT Exam Type: TIBIA/FIBULA 2VWS LT, ANKLE COMP 3VWS LT Clinical Information: SEVERE PAIN, R/O ANY FRACTURES Comparison: None Findings: No acute fractures or dislocations. No bone destruction. Calcaneal spurs. Soft tissue swelling of the ankle. IMPRESSION: Soft tissue swelling of the ankle. PROCEDURE: TIBFIB LT - TIBIA/FIBULA 2VWS LT Exam Type: TIBIA/FIBULA 2VWS LT, ANKLE COMP 3VWS LT Clinical Information: SEVERE PAIN, R/O ANY FRACTURES Comparison: None Findings: No acute fractures or dislocations. No bone destruction. Calcaneal spurs. Soft tissue swelling of the ankle. IMPRESSION: Soft tissue swelling of the ankle. PROCEDURE: VENOUS CHANO - US VENOUS DOPPLER BILATERAL Exam Type: US VENOUS DOPPLER BILATERAL Clinical Information: r/o DVT of the bilateral lower extremities Comparison: None Findings: The examination shows normal deep venous system. There is normal compressibility at all levels. There is no intraluminal clot. There is no occlusion. Adequate response is obtained on augmentation. Impression: No evidence of DVT. ASSESSMENT: Acute systolic heart failure exacerbation, POA, [LVEF 20-25%, as per 2D echo on 05/10/2024] Acute kidney injury, POA Urinary tract infection, POA, Gram-negative rods Atrial fibrillation, POA Hypertension, POA Octogenarian, POA Frailty, POA Obesity, POA Leukocytosis, POA, improving GERD, POA Prior history of alcohol use, POA Type 2 diabetes mellitus, POA PLAN: Continue telemetry monitoring Acute systolic heart failure exacerbation, POA, [LVEF 20-25%, as per 2D echo on 05/10/2024] BNP 648 Urine output 1.4 L Continue with metoprolol succinate 50 mg daily Follow up on Cardiology consult recommendations Patient is currently on 40 mg Lasix IV Acute kidney injury, POA BUN 38 , creatinine 1.8 Daily weights Strict intake, output, and daily weight should be monitored Please renally adjust medications Avoid nephrotoxic and nonsteroidal drugs Avoid contrast if possible Will continue to monitor renal function, anemia, electrolytes Follow up on Nephrology consult recommendation Atrial fibrillation, POA Heart rate Controlled in between 65-75s Patient is currently on heparin drip at the rate 15.7 mL/hour Continue plan as per cardiology consult recommended Urinary tract infection, POA, Gram-negative rods Culture resulted in Gram-negative rods Continue Rocephin1 g Q 24 H Follow up on urine culture results Prior history of alcohol use, POA , Type 2 diabetes mellitus, POA patient has previous history of heavy alcohol consumption and recently has cut down on drinking to about 2-3 beers in a week, denies any previous history of significant alcohol withdrawals Continue CIWA protocol Glucometer checks Continue insulin sliding scale Continue DVT prophylaxis SCDs and GI prophylaxis Pepcid 40 mg p.o. ATTESTATION BY PHYSICIAN I have seen and examined the patient. I reviewed the documentation, medical decision making, and treatment plan as noted by the resident above. I agree with the findings and plan of care. Todd Deluna MD, PRIYANKA MD May 11, 2024 18:21
--- NOTE | 2024-05-11 19:05 | PN ---
CARDIOLOGY Reason for consult: CAD, CHF HPI/story at presentation: This is a pleasant 83-year-old male with past medical history as per present with complaints of lower EXTR edema, was newly diagnosed with atrial fibrillation. Reviewed EKGs in the office and in the hospital with no previous atrial fibrillation. Not on anticoagulation at home. Subjective: 05/10/2024, edema 05/11/2024 patient seen and evaluate at bedside Denies any chest pain or shortness of breath at this time No events reported overnight by primary nurse Past medical history: See below Allergies, Meds See chart Review of systems Review of Systems Constitutional: Negative for chills and fever. HENT: Negative for ear discharge and ear pain. Eyes: Negative for photophobia and discharge. Respiratory: Negative for cough, sputum production and stridor. Cardiovascular: Negative for chest pain and palpitations. Gastrointestinal: Negative for diarrhea and vomiting. Genitourinary: Negative for frequency. Musculoskeletal: Negative for myalgias. Skin: Negative for rash. Neurological: Negative for focal weakness and seizures. Endo/Heme/Allergies: Negative for polydipsia. Psychiatric/Behavioral: Negative for hallucinations. Vitals see chart PHYSICAL EXAMINATION GENERAL: The patient is alert and oriented*3 HEENT: Nonicteric sclerae, non traumatic HEART: Irregular rate and rhythm with no murmurs LUNGS: Clear to auscultation bilaterally ABDOMEN: No acute issues, non tender GENITAL, RECTAL: deferred SKIN: No rash NEUROLOGIC: NFND EXTREMITIES: EDEMA to B/L lower extremities ASSESSMENT CORONARY ARTERY DISEASE Status post bypass, 2021 CARDIOMYOPATHY Previous EF of 25% ATRIAL FIBRILLATION No previous history EDEMA Bilateral, on diuresis ACUTE KIDNEY INJURY History of, creatinine 1.4 at presentation Baseline creatinine 1.4, 2020 DIABETES, OBESITY, HYPERTENSION, DYSLIPIDEMIA CORE MEASURES On aspirin statin Entresto Lasix metoprolol at home OTHER MEDICAL PROBLEMS COPD Acid reflux, abdominal hernia surgery PLAN 05/10/2024 newly diagnosed atrial fibrillation, will get him on anticoagulation with heparin, will need to watch for issues with bleeding. Edema currently on diuresis known chronic kidney disease baseline creatinine 0.4. Known history of cardiomyopathy EF of 20% as well, question with diuresis as underlying cardiorenal syndrome is likely. No shortness of breath at this time. Seen and examined 05/10/2024 at around 1800. 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 assess and adjust medication based on GFR avoid nephrotoxic medication if possible ATTESTATION Case discussed with Dr. Moreno Vitals/Labs Vital Signs Date Time Temp Pulse Resp B/P (MAP) Pulse Ox O2 Delivery O2 Flow Rate FiO2 05/11/24 16:00 97.9 75 20 117/81 96 Room Air 05/11/24 13:45 0 21 Laboratory Tests 05/10/24 21:58 05/11/24 09:28 Medications Current Medications Furosemide 80 mg ONCE ONCE IVP Last administered on 05/10/24at 13:19; Start 05/10/24 at 12:00; Stop 05/10/24 at 12:01; Status DC Insulin Human Regular INSULIN SLIDING SCAL... ACHS SQ; Start 05/10/24 at 16:30; Stop 06/09/24 at 16:29 Budesonide 0.5 mg BIDRESP IH Last administered on 05/11/24at 07:42; Start 05/10/24 at 18:00; Stop 06/09/24 at 17:59 Ipratropium Ivor 0.5 mg Q6H PRN IH; Start 05/10/24 at 14:30; Stop 06/09/24 at 14:29 Ceftriaxone Sodium 1 gm Q24H IVPB Last administered on 05/11/24at 15:12; Start 05/10/24 at 14:30; Stop 05/20/24 at 14:29 Acetaminophen 650 mg Q6H PRN PO Last administered on 05/11/24at 12:27; Start 05/10/24 at 14:30; Stop 06/09/24 at 14:29 Ondansetron HCl 4 mg Q6H PRN IVP; Start 05/10/24 at 14:30; Stop 06/09/24 at 14:29 Furosemide 40 mg BID IV Last administered on 05/10/24at 21:19; Start 05/10/24 at 21:00; Stop 05/11/24 at 00:18; Status DC Pantoprazole Sodium 40 mg Q24H PO Last administered on 05/11/24at 15:12; Start 05/10/24 at 14:30; Stop 06/09/24 at 14:29 Enoxaparin Sodium 30 mg DAILY SQ; Start 05/11/24 at 09:00; Stop 05/11/24 at 00:20; Status DC Vitamin B Complex/ Vit C/Folic Acid 1 cap DAILY PO Last administered on 05/11/24at 10:30; Start 05/11/24 at 09:00; Stop 06/10/24 at 08:59 Metoprolol Succinate 50 mg HS PO Last administered on 05/10/24at 22:02; Start 05/10/24 at 21:00; Stop 06/09/24 at 20:59 Thiamine HCl 100 mg Q24H IVP Last administered on 05/11/24at 15:13; Start 05/10/24 at 15:30; Stop 06/09/24 at 15:29 Chlordiazepoxide HCl 25 mg Q6H PRN PO; Start 05/10/24 at 16:00; Stop 05/17/24 at 15:59 Lorazepam 1 mg Q4H PRN IVP; Start 05/10/24 at 16:00; Stop 05/17/24 at 15:59 Pharmacy Profile Note 1 each PROTOCOL PRN MISC; Start 05/10/24 at 16:00; Stop 05/17/24 at 15:59 Morphine Sulfate 2 mg Q8H PRN IVP Last administered on 05/10/24at 19:34; Start 05/10/24 at 19:30; Stop 05/17/24 at 19:29 Vitamin B Complex/ Vit C/Folic Acid 1 cap DAILY PO; Start 05/11/24 at 09:00; Stop 05/10/24 at 22:47; Status DC Heparin Sodium/ Dextrose 250 ml @ 0 mls/hr PROTOCOL IV Last administered on 05/11/24at 05:17; Start 05/11/24 at 00:30; Stop 06/10/24 at 00:29 Heparin Sodium (Porcine) 7,000 unit ONCE ONCE IV Last administered on 05/11/24at 05:11; Start 05/11/24 at 05:00; Stop 05/11/24 at 05:01; Status DC Colchicine 0.6 mg ONCE ONCE PO Last administered on 05/11/24at 15:12; Start 05/11/24 at 14:00; Stop 05/11/24 at 14:01; Status DC Vitamin E 400 unit DAILY PO Last administered on 05/11/24at 15:12; Start 05/11/24 at 14:00; Stop 06/10/24 at 13:59 Furosemide 40 mg DAILY17 IV Last administered on 05/11/24at 17:29; Start 05/11/24 at 17:30; Stop 06/10/24 at 17:29 Atorvastatin Calcium 40 mg DAILY PO; Start 05/12/24 at 09:00; Stop 06/11/24 at 08:59 Lisinopril 10 mg DAILY PO; Start 05/12/24 at 09:00; Stop 06/11/24 at 08:59 Hydrochlorothiazide 12.5 mg DAILY PO; Start 05/12/24 at 09:00; Stop 06/11/24 at 08:59 LAM SANCHEZ [facility] May 11, 2024 19:05
[2024-05-12] VITALS (11 sets, daily range): BP systolic 117–144; BP diastolic 75–80; PULSE 55–101; RESP 18–20; TEMP 97.7–98.7; O2SAT 95–97
[2024-05-12 02:13] LABS: BASOPHILS # (AUTO) 0.04 K/uL (0.00-0.20); BASOPHILS % (AUTO) 0.3 % (0.0-5.0); EOSINOPHILS # (AUTO) 0.26 K/uL (0.00-0.70); EOSINOPHILS % (AUTO) 1.7 % (0.0-8.0); HEMATOCRIT 45.7 % (42-54); IMMATURE GRANULOCYTE ABSOLUTE 0.07 K/uL (0-1); LYMPHOCYTES # (AUTO) 3.3 K/uL (1.0-4.8); LYMPHOCYTES % (AUTO) 21.8 % (21.0-51.0); MEAN CORPUSCULAR HEMOGLOBIN 30.4 pg (27.0-33.0); MEAN CORPUSCULAR HGB CONC 32.8 g/dL (32.0-36.0); MEAN CORPUSCULAR VOLUME 92.5 fL (79-99); MONOCYTES # (AUTO) 1.2 K/uL (0.1-1.0); MONOCYTES % (AUTO) 7.7 % (3.0-13.0); NEUTROPHILS # (AUTO) 10.2 K/uL (1.8-7.7); PLATELET COUNT (AUTO) 416 K/uL (130-400); RED BLOOD CELL COUNT(AUTO) 4.94 MIL/uL (4.50-6.20); RED CELL DISTRIBUTION WIDTH 13.6 % (11.0-15.5)
[2024-05-12 02:29] LABS: ALBUMIN 3.5 g/dL (3.5-5.0); BILIRUBIN,TOTAL 0.8 mg/dL (0.2-1.0); CREATININE 1.6 mg/dL (0.5-1.3); MAGNESIUM 2.1 mg/dL (1.80-2.40); PHOSPHORUS 4.6 mg/dL (2.5-4.9); POTASSIUM 3.6 mmol/L (3.5-5.1); TOTAL PROTEIN, SERUM 7.6 g/dL (6.0-8.3)
[2024-05-12] MEDS ORDERED: LISINOPRIL 10 MG TABLET PO SCH (09:00)
[2024-05-12] MEDS ORDERED: hydroCHLOROthiazide 25 MG TABLET PO SCH (09:00)
[2024-05-12] MEDS: atorVAStatin 40 MG TABLET PO SCH (10:10)
--- NOTE | 2024-05-12 12:44 | PN ---
[facility] PROGRESS NOTE Date of Service: May 12, 2024 Time of Service: 12:42 SUBJECTIVE: This is a case of 83-year-old male with a past medical history of type 2 diabetes mellitus, obesity, hypertension, GERD, CAD[s/p CABG] presented to the ER with the complaints of generalized body weakness and significant lower extremity edema, which has been present for the past couple of months. He also reports experiencing dyspnea on exertion, paroxysmal nocturnal dyspnea and orthopnea. Initial labs showed WBC 15.1, hemoglobin 14.3, BUN 30, creatinine 1.4, BNP 648. Chest x-ray showed bilateral infiltrates concerning for pulmonary edema. EKG showed atrial fibrillation. Nephrology and cardiology consult was obtained. 05/11/2024 Patient is seen and examined at the bedside. He is complaining of left lower extremity pain. Denies fever, chills, difficulty in breathing, chest pain, palpitations, burning sensation while urinating, nausea, vomiting. Patient is currently on heparin drip at the rate 15.7 mL/hour. Labs WBC improved from 15.1-13.8, BUN 38, creatinine increased from 1.5-1.8, uric acid 9.5. Urine culture resulted in Gram-negative rods. Preliminary blood culture results are negative. Bilateral venous Doppler lower extremity did not show evidence of DVT. 2D echo showed LVEF is 20-25%. Grade 1 diastolic dysfunction. Abdominal Ultrasound revealed fatty liver infiltration and hepatomegaly. 05/12 patient has been seen and examined at bedside, case discussed with the RN, no acute events overnight, sitting comfortably in the chair, on heparin drip. Getting IV antibiotics. Patient with persistent leukocytosis, WBC today 15.0. Urine culture positive for Citrobacter koseri.2D echo showed LVEF is 20-25%. Grade 1 diastolic dysfunction. REVIEW OF SYSTEMS CONSTITUTIONAL: Denies fevers, chills, or night sweats. No unintentional weight loss reported. NEUROLOGICAL: Denies headache, amaurosis fugax, motor weakness, sensory deficit, vertigo/spinning sensation, gait abnormalities, or tremors. ENT: No hearing loss, otalgia, otorrhea, rhinitis, rhinorrhea, hoarseness, or sore throat. CARDIOVASCULAR: PND, orthopnea, shortness of breath, dyspnea on exertion, significant lower extremity edema PULMONARY: Denies any shortness of breath, cough, phlegm/sputum, hemoptysis, pleuritic chest pain. SLEEP: Denies morning headaches, daytime somnolence or napping. Denies difficulty falling asleep, staying asleep, waking from sleep. Denies knowledge of snoring. GASTROINTESTINAL: Denies any type of dysphagia to either liquids or solids. Denies nausea, vomiting, pyrosis, early satiety, abdominal pain, diarrhea, const ipation, or changes in stool consistency or caliber. Denies coffee-ground emesis, hematemesis, hematochezia, or melanotic stools. GENITOURINARY: Denies frequency, urgency, nocturia, hematuria or incontinence (Storage/Irritative symptoms.) Low urinary stream, straining to void, urinary intermittency or hesitancy, splitting of the voiding stream, terminal dribbling. ENDOCRINOLOGIC: Denies polyuria, polydipsia, polyphagia or heat/cold intolerances. HEMATOLOGIC: Denies thrombophilia/previous clots, or coagulopathy/bleeding disorders. ONCOLOGIC: Denies personal history of malignancy. DERMATOLOGIC: Denies rashes or pruritus. PSYCHIATRIC: Denies any suicidal or homicidal ideation. Denies hallucinations. PHYSICAL EXAM GENERAL APPEARANCE: The patient is awake, alert, and oriented, in no acute cardiopulmonary distress. NEUROLOGICAL: Cranial nerves II-XII grossly intact. Motor is 5/5 in bilateral upper and lower extremities proximal to distal. No sensory deficits. No focal deficits noted of the bilateral upper or lower extremity HEENT: Face is symmetric. Pupils are equal and reactive. Extraocular movements are intact. NECK: Supple. No JVD. No thyromegaly. No submental, submandibular, pre- /postauricular, occipital or supraclavicular lymphadenopathy. CHEST: Normal chest expansion. No Telemetry. LUNGS: crackles noted of the bilateral lung bases CARDIOVASCULAR: Regular. S1 and S2 normal. No appreciable rubs, murmurs or gallops. ABDOMEN: Soft, nontender, and nondistended. There is no rebound, voluntary guarding, or rigidity. : Deferred. No Cristina. EXTREMITIES: 2+ pitting edema noted of the bilateral lower extremities SKIN: No skin breakdown. Vital Signs (last 8hr) Date Time Temp Pulse Resp B/P (MAP) Pulse Ox O2 Delivery O2 Flow Rate FiO2 05/12/24 11:25 98.6 80 20 120/80 96 Room Air 05/12/24 07:26 98.8 87 20 118/77 98 Room Air 05/12/24 07:02 83 20 05/12/24 07:02 83 20 N/A Room Air 0.0 21 LABS: Laboratory: Test 05/12/24 11:04 05/12/24 10:12 05/12/24 02:03 05/11/24 09:28 Range/Units Whole Blood Glucose 104 70-110 MG/DL Activated Partial Thromboplast Time 90.1 #*H 26.3-35.5 SEC White Blood Count 15.0 H 4.8-10.8 K/uL Red Blood Count 4.94 4.50-6.20 MIL/uL Hemoglobin 15.0 14.0-18.0 g/dL Hematocrit 45.7 42-54 % Mean Corpuscular Volume 92.5 79-99 fL Mean Corpuscular Hemoglobin 30.4 27.0-33.0 pg Mean Corpuscular Hemoglobin Concent 32.8 32.0-36.0 g/dL Red Cell Distribution Width 13.6 11.0-15.5 % Platelet Count 416 H 130-400 K/uL Mean Platelet Volume 10.1 7.5-10.5 fL Immature Granulocyte % (Auto) 0.5 0-1 % Neutrophils (%) (Auto) 68.0 40.0-77.0 % Lymphocytes (%) (Auto) 21.8 21.0-51.0 % Monocytes (%) (Auto) 7.7 3.0-13.0 % Eosinophils (%) (Auto) 1.7 0.0-8.0 % Basophils (%) (Auto) 0.3 0.0-5.0 % Neutrophils # (Auto) 10.2 H 1.8-7.7 K/uL Lymphocytes # (Auto) 3.3 1.0-4.8 K/uL Monocytes # (Auto) 1.2 H 0.1-1.0 K/uL Eosinophils # (Auto) 0.26 0.00-0.70 K/uL Basophils # (Auto) 0.04 0.00-0.20 K/uL Absolute Immature Granulocyte (auto 0.07 0-1 K/uL Nucleated Red Blood Cells 0.0 0.0-0.19 % Sodium Level 137 136-145 mmol/L Potassium Level 3.6 3.5-5.1 mmol/L Chloride Level 96 L 101-111 mmol/L Carbon Dioxide Level 35 H 21-32 mmol/L Blood Urea Nitrogen 42 H 7-18 mg/dL Creatinine 1.6 H 0.5-1.3 mg/dL Glomerular Filtration Rate Calc 42 >90 mL/min Random Glucose 106 H 70-105 mg/dL Total Calcium 9.2 8.5-10.1 mg/dL Phosphorus Level 4.6 2.5-4.9 mg/dL Magnesium Level 2.10 1.80-2.40 mg/dL Total Bilirubin 0.8 0.2-1.0 mg/dL Aspartate Amino Transf (AST/SGOT) 21 10-37 U/L Alanine Aminotransferase (ALT/SGPT) 30 12-78 U/L Alkaline Phosphatase 103 50-136 U/L Total Protein 7.6 6.0-8.3 g/dL Albumin 3.5 3.5-5.0 g/dL Uric Acid 9.5 H 2.6-7.2 mg/dL Thyroid Stimulating Hormone (TSH) 1.89 0.36-3.74 uIU/mL Current Medications Medications (Trade) Dose Ordered Sig/Linda Route PRN Reason Start Time Stop Time Status Last Admin Dose Admin Acetaminophen (TYLenol 325MG TAB) 650 mg Q6H PRN PO MILD PAIN (1-3) 05/10/24 14:30 06/09/24 14:29 05/11/24 12:27 650 MG Atorvastatin Calcium (LIPItor 40MG) 40 mg DAILY PO 05/12/24 09:00 06/11/24 08:59 05/12/24 10:10 40 MG Budesonide (Pulmicort 0.5 Mg/2ml) 0.5 mg BIDRESP IH 05/10/24 18:00 06/09/24 17:59 05/12/24 07:01 0.5 MG Ceftriaxone Sodium (ROCEphine 1G INJ) 1 gm Q24H IVPB 05/10/24 14:30 05/20/24 14:29 05/11/24 15:12 1 GM Chlordiazepoxide HCl (LIBrium 25 MG CAP) 25 mg Q6H PRN PO ALCOHOL WITHDRAWAL PROTOCOL 05/10/24 16:00 05/17/24 15:59 Enoxaparin Sodium (Lovenox) 30 mg DAILY SQ 05/11/24 09:00 05/11/24 00:20 DC Furosemide (LASix 40MG VIAL) 40 mg BID IV 05/10/24 21:00 05/11/24 00:18 DC 05/10/24 21:19 40 MG Furosemide (LASix 40MG VIAL) 40 mg DAILY17 IV 05/11/24 17:30 06/10/24 17:29 05/11/24 17:29 40 MG Heparin Sodium/ Dextrose 250 ml @ 0 mls/hr PROTOCOL IV 05/11/24 00:30 06/10/24 00:29 05/12/24 00:41 12 MLS/HR Hydrochlorothiazide (hydroCHLOROthiazide 25MG) 12.5 mg DAILY PO 05/12/24 09:00 05/11/24 19:55 DC Insulin Human Regular (humuLIN R 100 UNIT/ML 3ML) INSULIN SLIDING SCAL... ACHS SQ 05/10/24 16:30 06/09/24 16:29 Ipratropium [place] (AtrovENT UD) 0.5 mg Q6H PRN IH SHORTNESS OF BREATH 05/10/24 14:30 06/09/24 14:29 Lisinopril (Prinivil 10mg) 10 mg DAILY PO 05/12/24 09:00 05/11/24 19:55 DC Lorazepam (AtiVAN) 1 mg Q4H PRN IVP ALCOHOL WITHDRAWAL PROTOCOL 05/10/24 16:00 05/17/24 15:59 Metoprolol Succinate (TopROL XL) 50 mg HS PO 05/10/24 21:00 06/09/24 20:59 05/11/24 21:43 50 MG Morphine Sulfate (morPHINE 2MG SYG) 2 mg Q8H PRN IVP SEVERE PAIN (7-10) 05/10/24 19:30 05/17/24 19:29 05/10/24 19:34 2 MG Ondansetron HCl (zoFRAN 4MG INJ) 4 mg Q6H PRN IVP NAUSEA/VOMITING 05/10/24 14:30 06/09/24 14:29 Pantoprazole Sodium (PROTonix 40MG TAB) 40 mg Q24H PO 05/10/24 14:30 06/09/24 14:29 05/11/24 15:12 40 MG Pharmacy Profile Note (Pharmacy Communication) 1 each PROTOCOL PRN MISC ETOH Withdrawal Score changes 05/10/24 16:00 05/17/24 15:59 Thiamine HCl (Vitamin B-1) 100 mg Q24H IVP 05/10/24 15:30 06/09/24 15:29 05/11/24 15:13 100 MG Vitamin B Complex/ Vit C/Folic Acid (Nephrovite Tablet) 1 cap DAILY PO 05/11/24 09:00 05/10/24 22:47 DC Vitamin B Complex/ Vit C/Folic Acid (Nephrovite Tablet) 1 cap DAILY PO 05/11/24 09:00 06/10/24 08:59 05/12/24 10:10 1 CAP Vitamin E (Vitamin E) 400 unit DAILY PO 05/11/24 14:00 06/10/24 13:59 05/12/24 10:09 400 UNIT DIAGNOSTICS / RADIOLOGY: [ ] ASSESSMENT: Acute systolic heart failure exacerbation, POA, (pending 2D echocardiogram to assess diastolic function) Acute kidney injury, POA Urinary tract infection, POA Atrial Fibrillation (unknown chronicity), POA Query if patient is on anticoagulation as outpatient, POA Hypertension, POA Octogenarian, POA Frailty, POA Obesity, POA Leukocytosis, POA GERD, POA Prior history of alcohol use, POA History of type 2 diabetes mellitus, POA PLAN: Patient remains admitted to the PCU, continue telemetry monitoring Patient remains on heparin drip, continue to follow Cardiology input and recommendations in terms of transitioning to oral anticoagulation secondary to atrial fibrillation with a RVR. Echocardiogram reviewed, ejection fraction 20- 25% Continue the patient on broad-spectrum IV antibiotics, the patient with persistent leukocytosis, urine culture positive for Citrobacter koseri. Currently the patient on Rocephin 1 g IV daily. We will request infectious disease input and recommendation NEURO: Minimize central acting medications as possible. Fall Precautions. Well lighted room through the day and minimize interruptions through the night to prevent acute delirium. PULMONARY: Supplemental 02 as needed BiPAP as necessary, for respiratory distress Titrate Fio2 to keep Spo2 > or = 90% DuoNebs and CPT as needed IS hourly while awake for pulmonary hygiene prn Out of bed to chair as tolerated Maintain aspiration precautions at all times CARDIOVASCULAR: Follow hemodynamics. Vital signs per facility protocol GI & NUTRITION: Continue nutritional support Aspirations precautions Prokinetic agents and laxatives as needed KIDNEYS & ELECTROLYTES: Strict monitoring of intake and output Daily weights Avoid nephrotoxic agents Monitor electrolytes and replace as needed Goal urine output of 30mL/hr or 0.5mL/kg/hr Medications to be dosed according to renal function. Avoid contrast if possible ENDOCRINE: Maintain blood glucose between 100-180 at all times. Insulin sliding scale for blood glucose management Hypoglycemia and hyperglycemia protocol in place INFECTIOUS DISEASE: Trend temperature, WBC and procalcitonin level Follow cultures, deescalate antibiotics as soon as possible. Panculture if new onset fever HEMATOLOGY & COAGULATION: Monitor H&H. Keep Hgb > 7 Transfuse 1 unit of PRBC for Hgb < 7 Transfuse 1 pack of platelets of platelets < 20, 000 Watch for any signs and symptoms of bleeding SKIN: Pressure ulcer prevention per facility protocol Specialty mattress as needed ORTHO/REHAB Continue PT/OT PRN: MEDICATIONS Tylenol 650 mg po every 4 hrs for fever zofran 4 mg IV every 6 hrs for n/v Hydralazine 5 mg IV every 4 hrs systolic pressure > 160 bowel regiment: lactulose 20 gm PO BID PRN constipation Supportive measures: Continue GI and DVT prophylaxis Disposition: Pending improvement in clinical condition All questions answered time spent: > 35 min ANISH VOGT MD May 12, 2024 12:44
--- NOTE | 2024-05-12 14:19 | NUR ---
Notes: Met with pt. Communicated in Congolese. Pt reports good appetite, 100% PO intake, NKFA, no N/V, Last BM 05/10/2024, and only visits PCP when needed. Provided [facility] Healthy Nutrition Therapy, Pt receptive during visit. Handouts provided in Congolese, with RD phone number and extension, left at bedside. 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 Asked pt about his cholesterol levels, pt states his labs are good. Pt expected to have good compliance. Nutrition Concerns: Recommendations: Continue 75GMCCD + 1500 ml fluid + Low salt, Low fat per CAD Fluid restriction per MD Order lipid panel per hx CAD Monitor weight, Reweigh as possible Monitor electrolytes, Replenish electrolytes as protocol Monitor goals of care RD to follow + available for consult per protocol Dietetic Student, Shannon Carrillo Addendum: 05/12/24 at [address] Amended: Links added.
[2024-05-12 14:40] LABS: CHOLESTEROL 128 mg/dL (<200); HDL CHOLESTEROL 55 mg/dL (29-71); LDL DIRECT 72 mg/dL (0-99); TRIGLYCERIDES 78 mg/dL (30-200)
--- NOTE | 2024-05-12 15:15 | PN ---
NEPHROLOGY PROGRESS NOTE Date/Time Patient Seen: May 12, 2024 SUBJECTIVE: This is an 83-year-old male with a past medical history of diabetes mellitus type 2, obesity, hypertension, and crit, atrial fibrillation, coronary artery disease with prior history of CABG. He presented to emergency room with complaints of shortness of breath, or nausea and PND. He was found to have elevated BUN and creatinine. The patient has denied any other short localizing features. He continues on heparin drip, pending further Cardiology recommendations No other aggravating or relieving factor. Renal function is improving Electrolytes are stable. Abdominal ultrasound showed fatty liver infiltration and hepatomegaly. No hydronephrosis. He was seen in the emergency room, complaining of lower extremity cramps. No family at the bedside Prognosis remains guarded REVIEW OF SYSTEMS: GENERAL: Positive for shortness of breath NEUROLOGIC: Negative for any blurry vision, blind spots, double vision, facial asymmetry, dysphagia, dysarthria, hemiparesis, hemisensory deficits, vertigo, ataxia. HEENT: Negative for any head trauma, neck trauma, neck stiffness, photophobia, phonophobia, sinusitis, rhinitis. CARDIAC: Negative for any chest pain, dyspnea on exertion, paroxysmal nocturnal dyspnea, peripheral edema. PULMONARY: Negative for any shortness of breath, wheezing, COPD, or TB exposure. GASTROINTESTINAL: Negative for any abdominal pain, nausea, vomiting, bright red blood per rectum, melena. GENITOURINARY: Negative for any dysuria, hematuria, incontinence. INTEGUMENTARY: Negative for any rashes, cuts, insect bites. RHEUMATOLOGIC: Negative for any joint pains, photosensitive rashes, history of vasculitis or kidney problems. HEMATOLOGIC: Negative for any abnormal bruising, frequent infections or bleeding. Vital Signs (last 8hr) Date Time Temp Pulse Resp B/P (MAP) Pulse Ox O2 Delivery O2 Flow Rate FiO2 05/11/24 13:45 98.8 83 20 132/57 97 Room Air 05/11/24 13:45 96 Room Air* 0 05/11/24 12:06 97.9 71 18 144/78 97 Room Air* 0 05/11/24 08:57 97.9 71 20 143/89 98 Room Air* 0 05/11/24 07:44 65 20 N/A Room Air 0.0 05/11/24 07:42 65 20 PHYSICAL EXAM: GENERAL: Alert and oriented x 3. No acute distress. Well-nourished. EYES: EOMI. Anicteric. HENT: Moist mucous membranes. No scleral icterus. No cervical lymphadenopathy. LUNGS: Clear to auscultation bilaterally. No accessory muscle use. CARDIOVASCULAR: Regular rate and rhythm. No murmur. No JVD. ABDOMEN: Soft, non-tender and non-distended. No palpable masses. EXTREMITIES: No edema. Non-tender. SKIN: No rashes or lesions. Warm. NEUROLOGIC: No focal neurological deficits. CN II-XII grossly intact, but not individually tested. PSYCHIATRIC: Cooperative. Appropriate mood and affect. Current Medications Medications (Trade) Dose Ordered Sig/Linda Route PRN Reason Start Time Stop Time Status Last Admin Dose Admin Acetaminophen (TYLenol 325MG TAB) 650 mg Q6H PRN PO MILD PAIN (1-3) 05/10/24 14:30 06/09/24 14:29 05/11/24 12:27 650 MG Budesonide (Pulmicort 0.5 Mg/2ml) 0.5 mg BIDRESP IH 05/10/24 18:00 06/09/24 17:59 05/11/24 07:42 0.5 MG Ceftriaxone Sodium (ROCEphine 1G INJ) 1 gm Q24H IVPB 05/10/24 14:30 05/20/24 14:29 05/11/24 15:12 1 GM Chlordiazepoxide HCl (LIBrium 25 MG CAP) 25 mg Q6H PRN PO ALCOHOL WITHDRAWAL PROTOCOL 05/10/24 16:00 05/17/24 15:59 Enoxaparin Sodium (Lovenox) 30 mg DAILY SQ 05/11/24 09:00 05/11/24 00:20 DC Furosemide (LASix 40MG VIAL) 40 mg BID IV 05/10/24 21:00 05/11/24 00:18 DC 05/10/24 21:19 40 MG Heparin Sodium/ Dextrose 250 ml @ 0 mls/hr PROTOCOL IV 05/11/24 00:30 06/10/24 00:29 05/11/24 05:17 15.72 MLS/HR Insulin Human Regular (humuLIN R 100 UNIT/ML 3ML) INSULIN SLIDING SCAL... ACHS SQ 05/10/24 16:30 06/09/24 16:29 Ipratropium [place] (AtrovENT UD) 0.5 mg Q6H PRN IH SHORTNESS OF BREATH 05/10/24 14:30 06/09/24 14:29 Lorazepam (AtiVAN) 1 mg Q4H PRN IVP ALCOHOL WITHDRAWAL PROTOCOL 05/10/24 16:00 05/17/24 15:59 Metoprolol Succinate (TopROL XL) 50 mg HS PO 05/10/24 21:00 06/09/24 20:59 05/10/24 22:02 50 MG Morphine Sulfate (morPHINE 2MG SYG) 2 mg Q8H PRN IVP SEVERE PAIN (7-10) 05/10/24 19:30 05/17/24 19:29 05/10/24 19:34 2 MG Ondansetron HCl (zoFRAN 4MG INJ) 4 mg Q6H PRN IVP NAUSEA/VOMITING 05/10/24 14:30 06/09/24 14:29 Pantoprazole Sodium (PROTonix 40MG TAB) 40 mg Q24H PO 05/10/24 14:30 06/09/24 14:29 05/11/24 15:12 40 MG Pharmacy Profile Note (Pharmacy Communication) 1 each PROTOCOL PRN MISC ETOH Withdrawal Score changes 05/10/24 16:00 05/17/24 15:59 Thiamine HCl (Vitamin B-1) 100 mg Q24H IVP 05/10/24 15:30 06/09/24 15:29 05/11/24 15:13 100 MG Vitamin B Complex/ Vit C/Folic Acid (Nephrovite Tablet) 1 cap DAILY PO 05/11/24 09:00 05/10/24 22:47 DC Vitamin B Complex/ Vit C/Folic Acid (Nephrovite Tablet) 1 cap DAILY PO 05/11/24 09:00 06/10/24 08:59 05/11/24 10:30 1 CAP Vitamin E (Vitamin E) 400 unit DAILY PO 05/11/24 14:00 06/10/24 13:59 05/11/24 15:12 400 UNIT LABORATORY: [ ] Hematology Labs: Test 05/12/24 02:03 Range/Units White Blood Count 15.0 H 4.8-10.8 K/uL Red Blood Count 4.94 4.50-6.20 MIL/uL Hemoglobin 15.0 14.0-18.0 g/dL Hematocrit 45.7 42-54 % Mean Corpuscular Volume 92.5 79-99 fL Mean Corpuscular Hemoglobin 30.4 27.0-33.0 pg Mean Corpuscular Hemoglobin Concent 32.8 32.0-36.0 g/dL Red Cell Distribution Width 13.6 11.0-15.5 % Platelet Count 416 H 130-400 K/uL Mean Platelet Volume 10.1 7.5-10.5 fL Immature Granulocyte % (Auto) 0.5 0-1 % Neutrophils (%) (Auto) 68.0 40.0-77.0 % Lymphocytes (%) (Auto) 21.8 21.0-51.0 % Monocytes (%) (Auto) 7.7 3.0-13.0 % Eosinophils (%) (Auto) 1.7 0.0-8.0 % Basophils (%) (Auto) 0.3 0.0-5.0 % Neutrophils # (Auto) 10.2 H 1.8-7.7 K/uL Lymphocytes # (Auto) 3.3 1.0-4.8 K/uL Monocytes # (Auto) 1.2 H 0.1-1.0 K/uL Eosinophils # (Auto) 0.26 0.00-0.70 K/uL Basophils # (Auto) 0.04 0.00-0.20 K/uL Absolute Immature Granulocyte (auto 0.07 0-1 K/uL Nucleated Red Blood Cells 0.0 0.0-0.19 % Chemistry Labs: Test 05/12/24 11:04 05/12/24 02:03 05/11/24 09:28 Range/Units Whole Blood Glucose 104 70-110 MG/DL Sodium Level 137 136-145 mmol/L Potassium Level 3.6 3.5-5.1 mmol/L Chloride Level 96 L 101-111 mmol/L Carbon Dioxide Level 35 H 21-32 mmol/L Blood Urea Nitrogen 42 H 7-18 mg/dL Creatinine 1.6 H 0.5-1.3 mg/dL Glomerular Filtration Rate Calc 42 >90 mL/min Random Glucose 106 H 70-105 mg/dL Total Calcium 9.2 8.5-10.1 mg/dL Phosphorus Level 4.6 2.5-4.9 mg/dL Magnesium Level 2.10 1.80-2.40 mg/dL Total Bilirubin 0.8 0.2-1.0 mg/dL Aspartate Amino Transf (AST/SGOT) 21 10-37 U/L Alanine Aminotransferase (ALT/SGPT) 30 12-78 U/L Alkaline Phosphatase 103 50-136 U/L Total Protein 7.6 6.0-8.3 g/dL Albumin 3.5 3.5-5.0 g/dL Triglycerides Level 78 30-200 mg/dL Cholesterol Level 128 <200 mg/dL LDL Cholesterol 72 0-99 mg/dL HDL Cholesterol 55 29-71 mg/dL Uric Acid 9.5 H 2.6-7.2 mg/dL Thyroid Stimulating Hormone (TSH) 1.89 0.36-3.74 uIU/mL Coagulation Labs: Test 05/12/24 10:12 Range/Units Activated Partial Thromboplast Time 90.1 #*H 26.3-35.5 SEC DIAGNOSTICS / RADIOLOGY: REASON: SEVERE PAIN, R/O ANY FRACTURES ORDERING PHYSICIAN: LOU MALIK MD PROCEDURE: TIBFIB LT - TIBIA/FIBULA 2VWS LT Exam Type: TIBIA/FIBULA 2VWS LT, ANKLE COMP 3VWS LT Clinical Information: SEVERE PAIN, R/O ANY FRACTURES Comparison: None Findings: No acute fractures or dislocations. No bone destruction. Calcaneal spurs. Soft tissue swelling of the ankle. IMPRESSION: Soft tissue swelling of the ankle. DICTATED BY: JESUS MARTINEZ MD DATE: 05/10/241951 REASON: SEVERE PAIN, R/O ANY FRACTURES ORDERING PHYSICIAN: LOU MALIK MD PROCEDURE: [id number] - ANKLE COMP 3VWS LT Exam Type: TIBIA/FIBULA 2VWS LT, ANKLE COMP 3VWS LT Clinical Information: SEVERE PAIN, R/O ANY FRACTURES Comparison: None Findings: No acute fractures or dislocations. No bone destruction. Calcaneal spurs. Soft tissue swelling of the ankle. IMPRESSION: Soft tissue swelling of the ankle. DICTATED BY: JESUS MARTINEZ MD DATE: 05/10/241951 REASON: SEVERE PAIN, R/O ANY FRACTURES ORDERING PHYSICIAN: LOU MALIK MD PROCEDURE: [id number] - ANKLE COMP 3VWS LT Exam Type: TIBIA/FIBULA 2VWS LT, ANKLE COMP 3VWS LT Clinical Information: SEVERE PAIN, R/O ANY FRACTURES Comparison: None Findings: No acute fractures or dislocations. No bone destruction. Calcaneal spurs. Soft tissue swelling of the ankle. IMPRESSION: Soft tissue swelling of the ankle. DICTATED BY: JESUS MARTINEZ MD DATE: 05/10/241951 REASON: hx of chronic drinking, r/o cirrhosis of the liver/SHILA ORDERING PHYSICIAN: LOU MALIK MD PROCEDURE: ABDOMEN - US ABDOMINAL COMPLETE Exam Type: Complete abdominal ultrasound with hepatic color-flow Doppler Clinical Information: Pain Comparison: None Findings: The liver shows fatty infiltration and is enlarged, measuring 17.1 and is otherwise unremarkable. Doppler evaluation shows patent portal and hepatic veins. The gallbladder shows no significant abnormalities. Specifically, no calculi are seen. No bile duct dilatation is noted. The gallbladder wall measures 1 mm. The common bile duct measures 5 mm. The right kidney measures 10.2 x 4 .8 cm. The left kidney measures 10.1 x 5 cm. Simple cysts of both kidneys are seen. The kidneys show no hydronephrosis or calculi, masses or other abnormalities. The pancreas is suboptimally evaluated. The spleen is unremarkable. The aorta and inferior vena cava show no significant abnormalities. IMPRESSION: FATTY LIVER INFILTRATION AND HEPATOMEGALY. OTHERWISE NORMAL ABDOMINAL ULTRASOUND. DICTATED BY: JESUS MARTINEZ MD DATE: 05/11/241119 REASON: suspected heart failure exacerbation,. Dr. Moreno to read ORDERING PHYSICIAN: LOU MALIK MD PROCEDURE: ECHO CMP - ECHO 2-D COMPLETE APPROVED REPORT EXAM: Two-dimensional and M-mode echocardiogram with Doppler and color Doppler. INDICATION ICD: Suspected heart failure exacerbation 2D Dimensions RVDd 4.9 cm LVEF(%) 15.9 (>50%) LVEF(%, simp.) 24 % IVSd 0.9 (0.7-1.1cm) FS(%) 7 % LA ESV INDEX (BP) 66.86 mL/m2 LVDd 6.0 (3.8-5.6cm) LA (2D) 5.3 (1.6-4.0cm) PWd 1.2 (0.7-1.1cm) Ao Root(2D) 3.3 (2.0-3.7cm) IVSs 1.0 cm LVOT diam 2.3 (1.8-2.4cm) LVDs 5.6 (2.5-4.0cm) IVC diam 1.7 cm PWs 1.3 cm Deformation Strain Apical 4 -7.0 % Apical 2 -3.0 % Apical 3 -8.0 % Global Strain -6.0 % M-Mode Dimensions EPSS 1.9 cm LA (MM) 6.0 (1.6-4.0cm) Ao Root(MM) 3.4 (2.0-3.7cm) Aortic Valve AoV Vmax 1.2 m/s Ao Peak GR 6.0 mmHg LVOT Vmax 0.8 m/s ZACKARY (VMAX) 2.9 cm2 Ao Mean GR 4.0 mmHg Mitral Valve MV E Vmax 97.6 cm/s DECEL Time 112 ms MR VTI 176 cm2 P 1/2 T 42 ms MVA (PHT) 5.3 cm2 TDI E/E' Medial 16.3 E/E' Lateral 12.2 Medial E' Peak V 6.00 cm/s Lateral E' Peak V 8.00 cm/s Pulmonary Valve PV Vmax 0.7 m/s Tricuspid Valve TR Vmax 2.0 m/s RAP (EST) 3 mmHg RVSP 19.0 mmHg TR Peak GR 16.0 mmHg Left Ventricle The left ventricle is severely dilated. Severe hypokinesis There is normal left ventricular wall thickness. LVEF is 20-25%. Grade 1 diastolic dysfunction Right Ventricle The right ventricle is moderately dilated. The right ventricular systolic function is normal. Atria The left atrium is severely dilated. LASVI 67mL.m. The right atrium is severely dilated. Aortic Valve Aortic valve is trileaflet and opens well. Non coronary cusp leaflet is heavily thickened but opens well. Mitral Valve The mitral valve is normal in structure. Posterior mitral valve annular calcification noted. There is moderate mitral valve regurgitation noted. There is no mitral valve stenosis. Tricuspid Valve The tricuspid valve is normal in structure. There is trace of tricuspid valve regurgitation noted. Pulmonic Valve The pulmonary valve is normal in structure. There is no pulmonic valvular regurgitation. Great Vessels The aortic root is normal in size. The IVC is normal in size and collapses >50% with inspiration. Pericardium There is no pericardial effusion. Other Information Quality : Adequate Conclusion LVEF is 20-25%. Grade 1 diastolic dysfunction There is normal left ventricular wall thickness. The left ventricle is severely dilated. Severe hypokinesis The right ventricle is moderately dilated. The left atrium is severely dilated. LASVI 67mL.m. The right atrium is severely dilated. Aortic valve is trileaflet and opens well. Non coronary cusp leaflet is heavily thickened but opens well. The mitral valve is normal in structure. Posterior mitral valve annular calcification noted. There is no pericardial effusion. Normal pulmonary pressures Study quality was adequate DICTATED BY: CHRITSIAN MORTON MD DATE: 05/10/24 1707 REASON: WEAKNESS ORDERING PHYSICIAN: ZULY OLIVEIRA DO PROCEDURE: CXR1VW - CHEST 1VW Exam Type: CHEST 1VW Clinical Information: WEAKNESS Comparison: None Findings: There is cardiomegaly and there is status post median sternotomy. The lungs are clear of infiltrates. Impression: Clear lungs. DICTATED BY: JESUS MARTINEZ MD DATE: 05/10/24 1003 ASSESSMENT: Acute systolic heart failure exacerbation Acute kidney injury, POA Urinary tract infection, POA Underlying history of atrial fibrillation, POA Query if patient is on anticoagulation as outpatient, POA Hypertension, POA Octogenarian, POA Frailty, POA Obesity, POA Leukocytosis, POA GERD, POA Prior history of alcohol use, POA History of type 2 diabetes mellitus, POA PLAN: Labs, diagnostic, radiologic exams reviewed and interpreted by myself and supervising physician. We have reviewed external records in detail Pending further cardiology recommendations Require close monitoring of renal function and electrolytes Order CBC, CMP, and electrolytes in am Continue with antibiotics Renal diabetic diet BiPAP as necessary, for respiratory distress Monitor blood pressure adjust medication doses as needed Avoid hypotensive episodes May use Dilaudid 0.5 mg IV every 6 hours as needed for severe pain Monitor blood sugars Strict intake, output, and daily weight should be monitored Please renally adjust medications Avoid nephrotoxic and nonsteroidal drugs Avoid contrast if possible Will continue to monitor renal function, anemia, electrolytes Treatment plan discussed with patient Questions were answered We have discussed with the other team physicians in detail about the care plan We will continue to monitor the patient closely ATTESTATION BY PHYSICIAN I have seen and examined the patient. I reviewed the documentation, medical decision making, and treatment plan as noted by the mid-level provider above. I agree with the findings and plan of care. FELIX LOPEZ MD, [facility] [employer] May 12, 2024 15:15
--- NOTE | 2024-05-12 18:39 | PN ---
CARDIOLOGY Reason for consult: CAD, CHF HPI/story at presentation: This is a pleasant 83-year-old male with past medical history as per present with complaints of lower EXTR edema, was newly diagnosed with atrial fibrillation. Reviewed EKGs in the office and in the hospital with no previous atrial fibrillation. Not on anticoagulation at home. Subjective: 05/10/2024, edema 05/11/2024 patient seen and evaluate at bedside Denies any chest pain or shortness of breath at this time No events reported overnight by primary nurse 05/12/2024 feeling better Past medical history: See below Allergies, Meds See chart Review of systems Review of Systems Constitutional: Negative for chills and fever. HENT: Negative for ear discharge and ear pain. Eyes: Negative for photophobia and discharge. Respiratory: Negative for cough, sputum production and stridor. Cardiovascular: Negative for chest pain and palpitations. Gastrointestinal: Negative for diarrhea and vomiting. Genitourinary: Negative for frequency. Musculoskeletal: Negative for myalgias. Skin: Negative for rash. Neurological: Negative for focal weakness and seizures. Endo/Heme/Allergies: Negative for polydipsia. Psychiatric/Behavioral: Negative for hallucinations. Vitals see chart PHYSICAL EXAMINATION GENERAL: The patient is alert and oriented*3 HEENT: Nonicteric sclerae, non traumatic HEART: Irregular rate and rhythm with no murmurs LUNGS: Clear to auscultation bilaterally ABDOMEN: No acute issues, non tender GENITAL, RECTAL: deferred SKIN: No rash NEUROLOGIC: NFND EXTREMITIES: EDEMA to B/L lower extremities ASSESSMENT CORONARY ARTERY DISEASE Status post bypass, 2021 CARDIOMYOPATHY Previous EF of 25% ATRIAL FIBRILLATION No previous history EDEMA Bilateral, on diuresis ACUTE KIDNEY INJURY History of, creatinine 1.4 at presentation Baseline creatinine 1.4, 2020 DIABETES, OBESITY, HYPERTENSION, DYSLIPIDEMIA CORE MEASURES On aspirin statin Entresto Lasix metoprolol at home OTHER MEDICAL PROBLEMS COPD Acid reflux, abdominal hernia surgery PLAN 05/10/2024 newly diagnosed atrial fibrillation, will get him on anticoagulation with heparin, will need to watch for issues with bleeding. Edema currently on diuresis known chronic kidney disease baseline creatinine 0.4. Known history of cardiomyopathy EF of 20% as well, question with diuresis as underlying cardiorenal syndrome is likely. No shortness of breath at this time. Seen and examined 05/10/2024 at around 1800. 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 assess and adjust medication based on GFR avoid nephrotoxic medication if possible 05/12/2024 Clinically, much improved. Walking around without any issues, edema has improved as well. EF of 2024%. On anticoagulation with Eliquis, can switch Lasix to oral, beta-waylon watch renal function. Hopefully, home tomorrow if continues to do well seen and examined 05/12/2024 at around 1800 ATTESTATION I was involved substantially in the care of this patient Number and complexity of problems addressed: 1 acute illness with systemic features Amount and or complexity of data Review of prior external note(s) from each unique source: 2+ Ordering of each unique test : 0 Review of the result(s) of each unique test: 2+ Assessment requiring an independent historian(s): No Independent interpretation of test performed by another MD/QHCP/appropriate source (not separately reported) : No Discussion of management or test interpretation with external MD/QHCP/appropriate source (not separately reported) : No Risk status (cardiac, billing related): Moderate Vitals/Labs Vital Signs Date Time Temp Pulse Resp B/P (MAP) Pulse Ox O2 Delivery O2 Flow Rate FiO2 05/12/24 16:00 98.8 85 20 117/75 98 Room Air 05/12/24 08:14 0 21 Laboratory Tests 05/12/24 02:03 Medications Current Medications Furosemide 80 mg ONCE ONCE IVP Last administered on 05/10/24at 13:19; Start 05/10/24 at 12:00; Stop 05/10/24 at 12:01; Status DC Insulin Human Regular INSULIN SLIDING SCAL... ACHS SQ Last administered on 05/12/24at 17:30; Start 05/10/24 at 16:30; Stop 06/09/24 at 16:29 Budesonide 0.5 mg BIDRESP IH Last administered on 05/12/24at 07:01; Start 05/10/24 at 18:00; Stop 06/09/24 at 17:59 Ipratropium [place] 0.5 mg Q6H PRN IH; Start 05/10/24 at 14:30; Stop 06/09/24 at 14:29 Ceftriaxone Sodium 1 gm Q24H IVPB Last administered on 05/12/24at 14:17; Start 05/10/24 at 14:30; Stop 05/20/24 at 14:29 Acetaminophen 650 mg Q6H PRN PO Last administered on 05/11/24at 12:27; Start 05/10/24 at 14:30; Stop 06/09/24 at 14:29 Ondansetron HCl 4 mg Q6H PRN IVP; Start 05/10/24 at 14:30; Stop 06/09/24 at 14:29 Furosemide 40 mg BID IV Last administered on 05/10/24at 21:19; Start 05/10/24 at 21:00; Stop 05/11/24 at 00:18; Status DC Pantoprazole Sodium 40 mg Q24H PO Last administered on 05/12/24at 14:17; Start 05/10/24 at 14:30; Stop 06/09/24 at 14:29 Enoxaparin Sodium 30 mg DAILY SQ; Start 05/11/24 at 09:00; Stop 05/11/24 at 00:20; Status DC Vitamin B Complex/ Vit C/Folic Acid 1 cap DAILY PO Last administered on 05/12/24at 10:10; Start 05/11/24 at 09:00; Stop 06/10/24 at 08:59 Metoprolol Succinate 50 mg HS PO Last administered on 05/11/24at 21:43; Start 05/10/24 at 21:00; Stop 06/09/24 at 20:59 Thiamine HCl 100 mg Q24H IVP Last administered on 05/12/24at 14:17; Start 05/10/24 at 15:30; Stop 06/09/24 at 15:29 Chlordiazepoxide HCl 25 mg Q6H PRN PO; Start 05/10/24 at 16:00; Stop 05/17/24 at 15:59 Lorazepam 1 mg Q4H PRN IVP; Start 05/10/24 at 16:00; Stop 05/17/24 at 15:59 Pharmacy Profile Note 1 each PROTOCOL PRN MISC; Start 05/10/24 at 16:00; Stop 05/17/24 at 15:59 Morphine Sulfate 2 mg Q8H PRN IVP Last administered on 05/10/24at 19:34; Start 05/10/24 at 19:30; Stop 05/17/24 at 19:29 Vitamin B Complex/ Vit C/Folic Acid 1 cap DAILY PO; Start 05/11/24 at 09:00; Stop 05/10/24 at 22:47; Status DC Heparin Sodium/ Dextrose 250 ml @ 0 mls/hr PROTOCOL IV Last administered on 05/12/24at 00:41; Start 05/11/24 at 00:30; Stop 06/10/24 at 00:29 Heparin Sodium (Porcine) 7,000 unit ONCE ONCE IV Last administered on 05/11/24at 05:11; Start 05/11/24 at 05:00; Stop 05/11/24 at 05:01; Status DC Colchicine 0.6 mg ONCE ONCE PO Last administered on 05/11/24at 15:12; Start 05/11/24 at 14:00; Stop 05/11/24 at 14:01; Status DC Vitamin E 400 unit DAILY PO Last administered on 05/12/24at 10:09; Start 05/11/24 at 14:00; Stop 06/10/24 at 13:59 Furosemide 40 mg DAILY17 IV Last administered on 05/12/24at 17:27; Start 05/11/24 at 17:30; Stop 06/10/24 at 17:29 Atorvastatin Calcium 40 mg DAILY PO Last administered on 05/12/24at 10:10; Start 05/12/24 at 09:00; Stop 06/11/24 at 08:59 Lisinopril 10 mg DAILY PO; Start 05/12/24 at 09:00; Stop 05/11/24 at 19:55; Status DC Hydrochlorothiazide 12.5 mg DAILY PO; Start 05/12/24 at 09:00; Stop 05/11/24 at 19:55; Status DC CHRISTIAN MORTON MD May 12, 2024 18:39
--- NOTE | 2024-05-12 18:45 | CONS ---
INFECTIOUS DISEASE CONSULTATION REQUESTING PHYSICIAN: Dr. Zavala. REASON FOR CONSULTATION: Antibiotic management. HISTORY OF PRESENT ILLNESS: An 83-year-old male with obesity, hypertension, diabetes mellitus, who was admitted with generalized body weakness and leg swelling. Recent WBC on admission was 15,000. The patient has no chest pain, palpitation, orthopnea. Urinalysis was found to be positive. Urine culture came back with citrobacter species. BP was elevated. The patient has been started on ceftriaxone. He was also found with atrial fibrillation, which is new. The patient found with heart failure and was placed on Lasix. No diarrhea, no abdominal pain. PAST MEDICAL HISTORY: * Diabetes mellitus. * Obesity. * Hypertension. * GERD. * Coronary artery disease. PAST SURGICAL HISTORY: * CABG. * Cardiac catheterization. * Hernia repair. ALLERGIES: No known drug allergy. CURRENT MEDICATIONS: Include: * Lasix. * Lipitor. * Ceftriaxone. * Lopressor. * Folic acid. SOCIAL HISTORY: No alcohol, tobacco, or illicit drug use. FAMILY HISTORY: Noncontributory except for diabetes mellitus. REVIEW OF SYSTEMS: Greater than 10 systems were reviewed, negative except as documented above. PHYSICAL EXAMINATION: GENERAL: Elderly male, awake. VITAL SIGNS: Temperature 98.3, pulse 80, respiratory rate 20, BP 120/80. EYES: No icterus. Pupils equal and reactive. HENT: No oral lesions seen. Moist oral mucosa. NECK: Supple. No JVD or thyromegaly. LUNGS: Good air entry. No rales, no rhonchi. CARDIOVASCULAR: S1, S2 regular. No murmur heard. ABDOMEN: Full, soft. Bowel sound is present. No organomegaly. CENTRAL NERVOUS SYSTEM: Awake, alert, oriented x 3. No focal deficits. SKIN: No rashes, no itchiness. LYMPHATIC: No peripheral lymphadenopathy. BACK: No deformity, no pressure ulcer. HEMATOLOGIC: No bleeding or petechial lesions seen. MUSCULOSKELETAL: No joint swelling, erythema, or tenderness. LABORATORY DATA: Sodium 137, potassium 3.3, BUN 43, creatinine 1.6. WBC 15.0, hemoglobin 15.0, platelet 460. Urine culture grew Citrobacter koseri. Blood culture, no growth for 2 days. RADIOLOGY: Abdominal sonogram unremarkable. Venous Doppler unremarkable. Echocardiogram shows EF of 20%. Chest x-ray shows bilateral infiltrates. ASSESSMENT: An 83-year-old male leg swelling. 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 * Urinary tract infection. * Diabetes mellitus. * Hypertension. * Renal insufficiency. * Obesity. PLAN: * Continue ceftriaxone. * Continue Lasix. * Continue antihypertensive. * Continue antidiabetic. * Continue DVT prophylaxis. * Maintain electrolytes. * Avoid nephrotoxic medication. Thank you for allowing me to participate in the care of this patient. TID: [id number] RECEIPT: [id number]
[2024-05-12] MEDS: APIXaban 5 MG TABLET PO SCH (22:14)
[2024-05-13] VITALS (7 sets, daily range): BP systolic 105–131; BP diastolic 59–83; PULSE 65–88; RESP 20; TEMP 97.6–98.6; O2SAT 95–96
[2024-05-13 03:59] LABS: HEMATOCRIT 44.8 % (42-54); MEAN CORPUSCULAR HEMOGLOBIN 30.5 pg (27.0-33.0); MEAN CORPUSCULAR VOLUME 92.4 fL (79-99); RED BLOOD CELL COUNT(AUTO) 4.85 MIL/uL (4.50-6.20); RED CELL DISTRIBUTION WIDTH 13.4 % (11.0-15.5); WHITE BLOOD COUNT (AUTO) 13.7 K/uL (4.8-10.8)
[2024-05-13 04:18] LABS: ALBUMIN 3.5 g/dL (3.5-5.0); BILIRUBIN,TOTAL 0.8 mg/dL (0.2-1.0); CREATININE 1.6 mg/dL (0.5-1.3); MAGNESIUM 2.3 mg/dL (1.80-2.40); POTASSIUM 3.5 mmol/L (3.5-5.1); TOTAL PROTEIN, SERUM 7.5 g/dL (6.0-8.3)
[2024-05-13] MEDS: furoSEMIDE 40 MG TABLET PO SCH (09:53)
[2024-05-13] MEDS ORDERED: NITR0.4T50 SL (12:05)
[2024-05-13] MEDS ORDERED: ATOR40TA69 PO (12:05)
[2024-05-13] MEDS ORDERED: FURO40TA7 PO (12:05)
[2024-05-13] MEDS ORDERED: POTA10CA95 PO (12:05)
[2024-05-13] MEDS ORDERED: FOLI0.8T53 PO (12:05)
[2024-05-13] MEDS ORDERED: METO50TA9 PO (12:05)
[2024-05-13] MEDS ORDERED: APIX5TAB PO (12:05)
--- NOTE | 2024-05-13 12:59 | PN ---
NEPHROLOGY PROGRESS NOTE Date/Time Patient Seen: May 13, 2024 SUBJECTIVE: This is an 83-year-old male with a past medical history of diabetes mellitus type 2, obesity, hypertension, and crit, atrial fibrillation, coronary artery disease with prior history of CABG. He presented to emergency room with complaints of shortness of breath, or nausea and PND. He was found to have elevated BUN and creatinine. The patient has denied any other short localizing features. Continues to be followed by Cardiology No other aggravating or relieving factor. Renal function and electrolytes are stable. Abdominal ultrasound showed fatty liver infiltration and hepatomegaly. No hydronephrosis. Urine culture positive for Citrobacter koseri, ID has been consulted He was seen in the medical floor, in no acute distress No family at the bedside Prognosis remains guarded REVIEW OF SYSTEMS: GENERAL: Positive for shortness of breath NEUROLOGIC: Negative for any blurry vision, blind spots, double vision, facial asymmetry, dysphagia, dysarthria, hemiparesis, hemisensory deficits, vertigo, ataxia. HEENT: Negative for any head trauma, neck trauma, neck stiffness, photophobia, phonophobia, sinusitis, rhinitis. CARDIAC: Negative for any chest pain, dyspnea on exertion, paroxysmal nocturnal dyspnea, peripheral edema. PULMONARY: Negative for any shortness of breath, wheezing, COPD, or TB exposure. GASTROINTESTINAL: Negative for any abdominal pain, nausea, vomiting, bright red blood per rectum, melena. GENITOURINARY: Negative for any dysuria, hematuria, incontinence. INTEGUMENTARY: Negative for any rashes, cuts, insect bites. RHEUMATOLOGIC: Negative for any joint pains, photosensitive rashes, history of vasculitis or kidney problems. HEMATOLOGIC: Negative for any abnormal bruising, frequent infections or bleeding. Vital Signs (last 8hr) Date Time Temp Pulse Resp B/P (MAP) Pulse Ox O2 Delivery O2 Flow Rate FiO2 05/11/24 13:45 98.8 83 20 132/57 97 Room Air 05/11/24 13:45 96 Room Air* 0 05/11/24 12:06 97.9 71 18 144/78 97 Room Air* 0 05/11/24 08:57 97.9 71 20 143/89 98 Room Air* 0 05/11/24 07:44 65 20 N/A Room Air 0.0 05/11/24 07:42 65 20 PHYSICAL EXAM: GENERAL: Alert and oriented x 3. No acute distress. Well-nourished. EYES: EOMI. Anicteric. HENT: Moist mucous membranes. No scleral icterus. No cervical lymphadenopathy. LUNGS: Clear to auscultation bilaterally. No accessory muscle use. CARDIOVASCULAR: Regular rate and rhythm. No murmur. No JVD. ABDOMEN: Soft, non-tender and non-distended. No palpable masses. EXTREMITIES: No edema. Non-tender. SKIN: No rashes or lesions. Warm. NEUROLOGIC: No focal neurological deficits. CN II-XII grossly intact, but not individually tested. PSYCHIATRIC: Cooperative. Appropriate mood and affect. Current Medications Medications (Trade) Dose Ordered Sig/Linda Route PRN Reason Start Time Stop Time Status Last Admin Dose Admin Acetaminophen (TYLenol 325MG TAB) 650 mg Q6H PRN PO MILD PAIN (1-3) 05/10/24 14:30 06/09/24 14:29 05/11/24 12:27 650 MG Budesonide (Pulmicort 0.5 Mg/2ml) 0.5 mg BIDRESP IH 05/10/24 18:00 06/09/24 17:59 05/11/24 07:42 0.5 MG Ceftriaxone Sodium (ROCEphine 1G INJ) 1 gm Q24H IVPB 05/10/24 14:30 05/20/24 14:29 05/11/24 15:12 1 GM Chlordiazepoxide HCl (LIBrium 25 MG CAP) 25 mg Q6H PRN PO ALCOHOL WITHDRAWAL PROTOCOL 05/10/24 16:00 05/17/24 15:59 Enoxaparin Sodium (Lovenox) 30 mg DAILY SQ 05/11/24 09:00 05/11/24 00:20 DC Furosemide (LASix 40MG VIAL) 40 mg BID IV 05/10/24 21:00 05/11/24 00:18 DC 05/10/24 21:19 40 MG Heparin Sodium/ Dextrose 250 ml @ 0 mls/hr PROTOCOL IV 05/11/24 00:30 06/10/24 00:29 05/11/24 05:17 15.72 MLS/HR Insulin Human Regular (humuLIN R 100 UNIT/ML 3ML) INSULIN SLIDING SCAL... ACHS SQ 05/10/24 16:30 06/09/24 16:29 Ipratropium [place] (AtrovENT UD) 0.5 mg Q6H PRN IH SHORTNESS OF BREATH 05/10/24 14:30 06/09/24 14:29 Lorazepam (AtiVAN) 1 mg Q4H PRN IVP ALCOHOL WITHDRAWAL PROTOCOL 05/10/24 16:00 05/17/24 15:59 Metoprolol Succinate (TopROL XL) 50 mg HS PO 05/10/24 21:00 06/09/24 20:59 05/10/24 22:02 50 MG Morphine Sulfate (morPHINE 2MG SYG) 2 mg Q8H PRN IVP SEVERE PAIN (7-10) 05/10/24 19:30 05/17/24 19:29 05/10/24 19:34 2 MG Ondansetron HCl (zoFRAN 4MG INJ) 4 mg Q6H PRN IVP NAUSEA/VOMITING 05/10/24 14:30 06/09/24 14:29 Pantoprazole Sodium (PROTonix 40MG TAB) 40 mg Q24H PO 05/10/24 14:30 06/09/24 14:29 05/11/24 15:12 40 MG Pharmacy Profile Note (Pharmacy Communication) 1 each PROTOCOL PRN MISC ETOH Withdrawal Score changes 05/10/24 16:00 05/17/24 15:59 Thiamine HCl (Vitamin B-1) 100 mg Q24H IVP 05/10/24 15:30 06/09/24 15:29 05/11/24 15:13 100 MG Vitamin B Complex/ Vit C/Folic Acid (Nephrovite Tablet) 1 cap DAILY PO 05/11/24 09:00 05/10/24 22:47 DC Vitamin B Complex/ Vit C/Folic Acid (Nephrovite Tablet) 1 cap DAILY PO 05/11/24 09:00 06/10/24 08:59 05/11/24 10:30 1 CAP Vitamin E (Vitamin E) 400 unit DAILY PO 05/11/24 14:00 06/10/24 13:59 05/11/24 15:12 400 UNIT LABORATORY: [ ] Hematology Labs: Test 05/13/24 03:44 05/12/24 02:03 Range/Units White Blood Count 13.7 H 4.8-10.8 K/uL Red Blood Count 4.85 4.50-6.20 MIL/uL Hemoglobin 14.8 14.0-18.0 g/dL Hematocrit 44.8 42-54 % Mean Corpuscular Volume 92.4 79-99 fL Mean Corpuscular Hemoglobin 30.5 27.0-33.0 pg Mean Corpuscular Hemoglobin Concent 33.0 32.0-36.0 g/dL Red Cell Distribution Width 13.4 11.0-15.5 % Platelet Count 376 130-400 K/uL Mean Platelet Volume 9.9 7.5-10.5 fL Nucleated Red Blood Cells 0.0 0.0-0.19 % Immature Granulocyte % (Auto) 0.5 0-1 % Neutrophils (%) (Auto) 68.0 40.0-77.0 % Lymphocytes (%) (Auto) 21.8 21.0-51.0 % Monocytes (%) (Auto) 7.7 3.0-13.0 % Eosinophils (%) (Auto) 1.7 0.0-8.0 % Basophils (%) (Auto) 0.3 0.0-5.0 % Neutrophils # (Auto) 10.2 H 1.8-7.7 K/uL Lymphocytes # (Auto) 3.3 1.0-4.8 K/uL Monocytes # (Auto) 1.2 H 0.1-1.0 K/uL Eosinophils # (Auto) 0.26 0.00-0.70 K/uL Basophils # (Auto) 0.04 0.00-0.20 K/uL Absolute Immature Granulocyte (auto 0.07 0-1 K/uL Chemistry Labs: Test 05/13/24 11:26 05/13/24 03:44 05/12/24 02:03 Range/Units Whole Blood Glucose 89 70-110 MG/DL Sodium Level 137 136-145 mmol/L Potassium Level 3.5 3.5-5.1 mmol/L Chloride Level 97 L 101-111 mmol/L Carbon Dioxide Level 35 H 21-32 mmol/L Blood Urea Nitrogen 50 H 7-18 mg/dL Creatinine 1.6 H 0.5-1.3 mg/dL Glomerular Filtration Rate Calc 42 >90 mL/min Random Glucose 108 H 70-105 mg/dL Total Calcium 9.2 8.5-10.1 mg/dL Magnesium Level 2.30 1.80-2.40 mg/dL Total Bilirubin 0.8 0.2-1.0 mg/dL Aspartate Amino Transf (AST/SGOT) 20 10-37 U/L Alanine Aminotransferase (ALT/SGPT) 25 12-78 U/L Alkaline Phosphatase 106 50-136 U/L Total Protein 7.5 6.0-8.3 g/dL Albumin 3.5 3.5-5.0 g/dL Phosphorus Level 4.6 2.5-4.9 mg/dL Triglycerides Level 78 30-200 mg/dL Cholesterol Level 128 <200 mg/dL LDL Cholesterol 72 0-99 mg/dL HDL Cholesterol 55 29-71 mg/dL Coagulation Labs: Test 05/12/24 19:04 Range/Units Activated Partial Thromboplast Time 66.6 #H 26.3-35.5 SEC DIAGNOSTICS / RADIOLOGY: REASON: SEVERE PAIN, R/O ANY FRACTURES ORDERING PHYSICIAN: LOU MALIK MD PROCEDURE: TIBFIB LT - TIBIA/FIBULA 2VWS LT Exam Type: TIBIA/FIBULA 2VWS LT, ANKLE COMP 3VWS LT Clinical Information: SEVERE PAIN, R/O ANY FRACTURES Comparison: None Findings: No acute fractures or dislocations. No bone destruction. Calcaneal spurs. Soft tissue swelling of the ankle. IMPRESSION: Soft tissue swelling of the ankle. DICTATED BY: JESUS MARTINEZ MD DATE: 05/10/241951 REASON: SEVERE PAIN, R/O ANY FRACTURES ORDERING PHYSICIAN: LOU MALIK MD PROCEDURE: [id number] - ANKLE COMP 3VWS LT Exam Type: TIBIA/FIBULA 2VWS LT, ANKLE COMP 3VWS LT Clinical Information: SEVERE PAIN, R/O ANY FRACTURES Comparison: None Findings: No acute fractures or dislocations. No bone destruction. Calcaneal spurs. Soft tissue swelling of the ankle. IMPRESSION: Soft tissue swelling of the ankle. DICTATED BY: JESUS MARTINEZ MD DATE: 05/10/241951 REASON: SEVERE PAIN, R/O ANY FRACTURES ORDERING PHYSICIAN: LOU MALIK MD PROCEDURE: [id number] - ANKLE COMP 3VWS LT Exam Type: TIBIA/FIBULA 2VWS LT, ANKLE COMP 3VWS LT Clinical Information: SEVERE PAIN, R/O ANY FRACTURES Comparison: None Findings: No acute fractures or dislocations. No bone destruction. Calcaneal spurs. Soft tissue swelling of the ankle. IMPRESSION: Soft tissue swelling of the ankle. DICTATED BY: JESUS MARTINEZ MD DATE: 05/10/241951 REASON: hx of chronic drinking, r/o cirrhosis of the liver/SHILA ORDERING PHYSICIAN: LOU MALIK MD PROCEDURE: ABDOMEN - US ABDOMINAL COMPLETE Exam Type: Complete abdominal ultrasound with hepatic color-flow Doppler Clinical Information: Pain Comparison: None Findings: The liver shows fatty infiltration and is enlarged, measuring 17.1 and is otherwise unremarkable. Doppler evaluation shows patent portal and hepatic veins. The gallbladder shows no significant abnormalities. Specifically, no calculi are seen. No bile duct dilatation is noted. The gallbladder wall measures 1 mm. The common bile duct measures 5 mm. The right kidney measures 10.2 x 4 .8 cm. The left kidney measures 10.1 x 5 cm. Simple cysts of both kidneys are seen. The kidneys show no hydronephrosis or calculi, masses or other abnormalities. The pancreas is suboptimally evaluated. The spleen is unremarkable. The aorta and inferior vena cava show no significant abnormalities. IMPRESSION: FATTY LIVER INFILTRATION AND HEPATOMEGALY. OTHERWISE NORMAL ABDOMINAL ULTRASOUND. DICTATED BY: JESUS MARTINEZ MD DATE: 05/11/241119 REASON: suspected heart failure exacerbation,. Dr. Moreno to read ORDERING PHYSICIAN: LOU MALIK MD PROCEDURE: ECHO CMP - ECHO 2-D COMPLETE APPROVED REPORT EXAM: Two-dimensional and M-mode echocardiogram with Doppler and color Doppler. INDICATION ICD: Suspected heart failure exacerbation 2D Dimensions RVDd 4.9 cm LVEF(%) 15.9 (>50%) LVEF(%, simp.) 24 % IVSd 0.9 (0.7-1.1cm) FS(%) 7 % LA ESV INDEX (BP) 66.86 mL/m2 LVDd 6.0 (3.8-5.6cm) LA (2D) 5.3 (1.6-4.0cm) PWd 1.2 (0.7-1.1cm) Ao Root(2D) 3.3 (2.0-3.7cm) IVSs 1.0 cm LVOT diam 2.3 (1.8-2.4cm) LVDs 5.6 (2.5-4.0cm) IVC diam 1.7 cm PWs 1.3 cm Deformation Strain Apical 4 -7.0 % Apical 2 -3.0 % Apical 3 -8.0 % Global Strain -6.0 % M-Mode Dimensions EPSS 1.9 cm LA (MM) 6.0 (1.6-4.0cm) Ao Root(MM) 3.4 (2.0-3.7cm) Aortic Valve AoV Vmax 1.2 m/s Ao Peak GR 6.0 mmHg LVOT Vmax 0.8 m/s ZACKARY (VMAX) 2.9 cm2 Ao Mean GR 4.0 mmHg Mitral Valve MV E Vmax 97.6 cm/s DECEL Time 112 ms MR VTI 176 cm2 P 1/2 T 42 ms MVA (PHT) 5.3 cm2 TDI E/E' Medial 16.3 E/E' Lateral 12.2 Medial E' Peak V 6.00 cm/s Lateral E' Peak V 8.00 cm/s Pulmonary Valve PV Vmax 0.7 m/s Tricuspid Valve TR Vmax 2.0 m/s RAP (EST) 3 mmHg RVSP 19.0 mmHg TR Peak GR 16.0 mmHg Left Ventricle The left ventricle is severely dilated. Severe hypokinesis There is normal left ventricular wall thickness. LVEF is 20-25%. Grade 1 diastolic dysfunction Right Ventricle The right ventricle is moderately dilated. The right ventricular systolic function is normal. Atria The left atrium is severely dilated. LASVI 67mL.m. The right atrium is severely dilated. Aortic Valve Aortic valve is trileaflet and opens well. Non coronary cusp leaflet is heavily thickened but opens well. Mitral Valve The mitral valve is normal in structure. Posterior mitral valve annular calcification noted. There is moderate mitral valve regurgitation noted. There is no mitral valve stenosis. Tricuspid Valve The tricuspid valve is normal in structure. There is trace of tricuspid valve regurgitation noted. Pulmonic Valve The pulmonary valve is normal in structure. There is no pulmonic valvular regurgitation. Great Vessels The aortic root is normal in size. The IVC is normal in size and collapses >50% with inspiration. Pericardium There is no pericardial effusion. Other Information Quality : Adequate Conclusion LVEF is 20-25%. Grade 1 diastolic dysfunction There is normal left ventricular wall thickness. The left ventricle is severely dilated. Severe hypokinesis The right ventricle is moderately dilated. The left atrium is severely dilated. LASVI 67mL.m. The right atrium is severely dilated. Aortic valve is trileaflet and opens well. Non coronary cusp leaflet is heavily thickened but opens well. The mitral valve is normal in structure. Posterior mitral valve annular calcification noted. There is no pericardial effusion. Normal pulmonary pressures Study quality was adequate DICTATED BY: CHRISTIAN MORTON MD DATE: 05/10/24 1707 REASON: WEAKNESS ORDERING PHYSICIAN: ZULY OLIVEIRA DO PROCEDURE: [id number] - CHEST 1VW Exam Type: CHEST 1VW Clinical Information: WEAKNESS Comparison: None Findings: There is cardiomegaly and there is status post median sternotomy. The lungs are clear of infiltrates. Impression: Clear lungs. DICTATED BY: JESUS MARTINEZ MD DATE: 05/10/24 1003 ASSESSMENT: Acute systolic heart failure exacerbation Acute kidney injury, POA Urinary tract infection, POA Underlying history of atrial fibrillation, POA Query if patient is on anticoagulation as outpatient, POA Hypertension, POA Octogenarian, POA Frailty, POA Obesity, POA Leukocytosis, POA GERD, POA Prior history of alcohol use, POA History of type 2 diabetes mellitus, POA PLAN: Labs, diagnostic, radiologic exams reviewed and interpreted by myself and supervising physician. We have reviewed external records in detail From Nephrology standpoint, patient may be discharged Follow up in the renal clinic in 1-2 weeks Antibiotics as per ID Renal diabetic diet Monitor blood pressure adjust medication doses as needed Avoid hypotensive episodes Strict intake, output, and daily weight should be monitored Please renally adjust medications Avoid nephrotoxic and nonsteroidal drugs Avoid contrast if possible Will continue to monitor renal function, anemia, electrolytes Treatment plan discussed with patient Questions were answered We have discussed with the other team physicians in detail about the care plan We will continue to monitor the patient closely ATTESTATION BY PHYSICIAN I have seen and examined the patient. I reviewed the documentation, medical decision making, and treatment plan as noted by the mid-level provider above. I agree with the findings and plan of care. FELIX LOPEZ MD, ELIZABETH FNP May 13, 2024 12:59
--- NOTE | 2024-05-13 14:25 | DS ---
Discharge Summary Hospital Course Summary: 83-year-old male with underlying history of type 2 diabetes mellitus, obesity, hypertension, GERD, coronary artery disease with prior history of coronary artery bypass grafting who presented to the ER for further evaluation of generalized weakness and significant lower extremity edema. Symptoms have been ongoing for the past several days family reported that patient has been having significant swelling in the lower extremities. Patient has been having PND, orthopnea, dyspnea on exertion with minimal ambulation. Patient does have underlying previous cardiac comorbidities including coronary artery disease for which he needed coronary artery bypass grafting in 2021. On presentation to the hospital, [place] [address], hemoglobin of 14.3, platelet count of [id number]. BMP remarkable for sodium of 138, potassium 4.3, BUN of 30, creatinine 1.4, BNP was noted to be at 648. Chest X-ray showed bilateral infiltrates concerning for pulmonary edema. Patient admitted for further management of heart failure exacerbation, patient noted to also have atrial fibrillation, cardiology consultation requested. The patient was placed on heparin drip. Echocardiogram done, reported as follows: Conclusion LVEF is 20-25%. Grade 1 diastolic dysfunction There is normal left ventricular wall thickness. The left ventricle is severely dilated. Severe hypokinesis The right ventricle is moderately dilated. The left atrium is severely dilated. LASVI 67mL.m. The right atrium is severely dilated. Aortic valve is trileaflet and opens well. Non coronary cusp leaflet is heavily thickened but opens well. The mitral valve is normal in structure. Posterior mitral valve annular calcification noted. There is no pericardial effusion. Normal pulmonary pressures Study quality was adequate Doppler of the lower extremity negative for DVT. During the course of the hospitalization patient with a urine culture positive for Citrobacter koseri. Today the patient is alert oriented x3, hemodynamically stable, transition to oral anticoagulation per handle lathe operator recommendation. Clear to be discharged home Shoe Turner(s): Cardiology and Infectious Disease Assessment/Plan: Final diagnosis Acute systolic heart failure exacerbation, POA, (pending 2D echocardiogram to a ssess diastolic function) Acute kidney injury, POA Urinary tract infection, POA Atrial Fibrillation (unknown chronicity), POA Query if patient is on anticoagulation as outpatient, POA Hypertension, POA Octogenarian, POA Frailty, POA Obesity, POA Leukocytosis, POA GERD, POA Prior history of alcohol use, POA History of type 2 diabetes mellitus, POA Discharge Instructions: Patient to follow up primary care physician as well as handle lathe operator as an outpatient and return to hospital if condition changes. Both the patient and family agreed and understood the information provided. Home Medications: Reported Medications Omeprazole (Omeprazole) 40 Mg Capsule.dr, 1 CAP PO DAILY 05/11/24 Atorvastatin Calcium (Atorvastatin Calcium) 40 Mg Tablet, 1 TAB PO DAILY 05/11/24 Furosemide (Furosemide) 20 Mg Tablet, 1 TAB PO DAILY 05/11/24 Metoprolol Succinate (Metoprolol Succinate) 50 Mg Tab.er.24h, 1 TAB PO DAILY 05/11/24 Lisinopril/Hydrochlorothiazide (Lisinopril-Hctz 10-12.5 mg Tab) 1 Each Tablet, 1 EACH PO DAILY, TAB 11/08/16 Amlodipine Besylate (Amlodipine Besylate) 10 Mg Tablet, 10 MG PO DAILY, TAB 11/08/16 Atorvastatin Calcium (Atorvastatin Calcium) 20 Mg Tablet, 20 MG PO HS, TAB 11/08/16 New Medications: Folic Acid/Vit B Complex and C (Nephro Vitamins Tablet) 0.8 Mg Tablet 0.8 MG PO DAILY, #30 TAB 1 Refill Nitroglycerin (Nitroglycerin) 0.4 Mg Tab.subl 1 TAB SL AD for chest pain, #25 TAB 1 Refill 1st sign of attack; may repeat every 5 mins; if pain persists after 3 in 15 min, medical attention is recommended Potassium Chloride (Potassium Chloride) 10 Meq Capsule.er 1 CAP PO DAILY for 30 Days, #30 CAP 1 Refill Apixaban (Eliquis) 5 Mg Tablet 5 MG PO BID for 30 Days, #60 TAB 1 Refill Atorvastatin Calcium (Lipitor) 40 Mg Tablet 40 MG PO DAILY for 30 Days, #30 TAB 1 Refill Furosemide (Lasix 40Mg Tab) 40 Mg Tablet 40 MG PO BID@,17 for 30 Days, #60 TAB 1 Refill Metoprolol Succinate (Toprol Xl) 50 Mg Tab.er.24h 50 MG PO HS for 30 Days, #30 TAB 1 Refill Continued Medications: Metoprolol Succinate (Metoprolol Succinate) 50 Mg Tab.er.24h 1 TAB PO DAILY Omeprazole (Omeprazole) 40 Mg Capsule.dr 1 CAP PO DAILY Discontinued Medications: Amlodipine Besylate (Amlodipine Besylate) 10 Mg Tablet 10 MG PO DAILY, TAB Atorvastatin Calcium (Atorvastatin Calcium) 20 Mg Tablet 20 MG PO HS, TAB Atorvastatin Calcium (Atorvastatin Calcium) 40 Mg Tablet 1 TAB PO DAILY Furosemide (Furosemide) 20 Mg Tablet 1 TAB PO DAILY Lisinopril/Hydrochlorothiazide (Lisinopril-Hctz 10-12.5 mg Tab) 1 Each Tablet 1 EACH PO DAILY, TAB Time spent arranging discharge: 31-60 minutes ANISH VOGT MD May 13, 2024 14:25
[2024-05-13] MEDS ORDERED: CEPH500B PO (14:28)
--- NOTE | 2024-05-13 14:58 | PN ---
INFECTIOUS DISEASE PROGRESS NOTE Date of Service: May 13, 2024 SUBJECTIVE: This is an 83-year-old male patient who was seen and examined at bedside in room 203. Patient is awake, alert and oriented x3. Patient is ambulating without difficulty. The final urine culture results came back positive for Citrobacter koseri. Patient continues on ceftriaxone IV daily. Patient is afebrile, temperature 98.6 and the WBC has trended down to 13.7. No other issues reported by nursing. PHYSICAL EXAM EYES: Anicteric. Pupils equal and reactive. HENT: No oral thrush seen, moist Oral mucosa NECK: Supple, no JVD or thyromegaly. LUNGS: Good air entry. No rales, no rhonchi. CARDIOVASCULAR: S1, S2 regular. No murmur heard. ABDOMEN: Soft, non tender, bowel sounds present, no organomegaly CENTRAL NERVOUS SYSTEM: Awake, alert, oriented x 3. SKIN: No rashes, no swelling. LYMPHATICS: No peripheral lymphadenopathy MUSCULOSKELETAL: No joint swelling, erythema or tenderness. EXTREMITIES: No cyanosis or clubbing. Bilateral lower extremities swelling. BACK: No deformity, no pressure ulcer. GENITOURINARY: No dysuria or hematuria Vital Sign (Last 12 Hours) 05/13/24 05/13/24 05/13/24 05/13/24 04:00 07:35 07:36 07:46 Temp 97.9 98.6 Pulse 88 81 81 79 Resp 20 20 20 20 B/P (MAP) 125/83 131/83 Pulse Ox 98 96 O2 Delivery Room Air N/A Room Air Room Air FiO2 21 05/13/24 11:31 Temp 97.5 Pulse 65 Resp 20 B/P (MAP) 105/59 Pulse Ox 97 O2 Delivery Room Air Intake & Output (last 24hrs) 05/12/24 05/12/24 05/13/24 15:00 23:00 07:00 Intake Total 1102.8 ml 512.4 ml Output Total 450 ml 1200 ml 400 ml Balance 652.8 ml -687.6 ml -400 ml LABS: Laboratory: Test 05/13/24 11:26 05/13/24 03:44 05/12/24 19:04 05/12/24 02:03 Range/Units Whole Blood Glucose 89 70-110 MG/DL White Blood Count 13.7 H 4.8-10.8 K/uL Red Blood Count 4.85 4.50-6.20 MIL/uL Hemoglobin 14.8 14.0-18.0 g/dL Hematocrit 44.8 42-54 % Mean Corpuscular Volume 92.4 79-99 fL Mean Corpuscular Hemoglobin 30.5 27.0-33.0 pg Mean Corpuscular Hemoglobin Concent 33.0 32.0-36.0 g/dL Red Cell Distribution Width 13.4 11.0-15.5 % Platelet Count 376 130-400 K/uL Mean Platelet Volume 9.9 7.5-10.5 fL Nucleated Red Blood Cells 0.0 0.0-0.19 % Sodium Level 137 136-145 mmol/L Potassium Level 3.5 3.5-5.1 mmol/L Chloride Level 97 L 101-111 mmol/L Carbon Dioxide Level 35 H 21-32 mmol/L Blood Urea Nitrogen 50 H 7-18 mg/dL Creatinine 1.6 H 0.5-1.3 mg/dL Glomerular Filtration Rate Calc 42 >90 mL/min Random Glucose 108 H 70-105 mg/dL Total Calcium 9.2 8.5-10.1 mg/dL Magnesium Level 2.30 1.80-2.40 mg/dL Total Bilirubin 0.8 0.2-1.0 mg/dL Aspartate Amino Transf (AST/SGOT) 20 10-37 U/L Alanine Aminotransferase (ALT/SGPT) 25 12-78 U/L Alkaline Phosphatase 106 50-136 U/L Total Protein 7.5 6.0-8.3 g/dL Albumin 3.5 3.5-5.0 g/dL Activated Partial Thromboplast Time 66.6 #H 26.3-35.5 SEC Immature Granulocyte % (Auto) 0.5 0-1 % Neutrophils (%) (Auto) 68.0 40.0-77.0 % Lymphocytes (%) (Auto) 21.8 21.0-51.0 % Monocytes (%) (Auto) 7.7 3.0-13.0 % Eosinophils (%) (Auto) 1.7 0.0-8.0 % Basophils (%) (Auto) 0.3 0.0-5.0 % Neutrophils # (Auto) 10.2 H 1.8-7.7 K/uL Lymphocytes # (Auto) 3.3 1.0-4.8 K/uL Monocytes # (Auto) 1.2 H 0.1-1.0 K/uL Eosinophils # (Auto) 0.26 0.00-0.70 K/uL Basophils # (Auto) 0.04 0.00-0.20 K/uL Absolute Immature Granulocyte (auto 0.07 0-1 K/uL Phosphorus Level 4.6 2.5-4.9 mg/dL Triglycerides Level 78 30-200 mg/dL Cholesterol Level 128 <200 mg/dL LDL Cholesterol 72 0-99 mg/dL HDL Cholesterol 55 29-71 mg/dL DIAGNOSTICS / RADIOLOGY: PATIENT: SONYA DOMINGO ACCT: [id number] LOC: [facility] U: [id number] AGE/SX: 83/M ROOM: [facility] RE05/10/[address]: LOU MALIK MD : 1940 BED: 1 DIS: STATUS: ADM IN TLOC: SPEC: [id number] MILLI: 05/10/24 STATUS: COMP REQ: [id number] RECD: 05/11/[address] [facility] [address]: ZULY OLIVEIRA DO SOURCE: [facility] ENTR: 05/11/[address] [facility] [address]: JOYCE PATEL MD SPDC: CLEAN CAT ORDERED: AERO ID & SENS Procedure Result Michelle Date-Time AEROBIC ID & SENSITIVITIES Final 05/12/24-06 MRL COLONY DESCRIPTION: DAY 1: COLONY COUNT: >100,000 CFU/ML GRAM NEGATIVE RODS IDENTIFICATION AND SENSITIVITY TO FOLLOW [facility] RX --------- ---- AZTREONAM <=4 S CEFAZOLIN <=2 S CEFTAZIDIME <=1 S CEFTAZIDIME/AVIBACTAM <=8 S CEFTRIAXONE <=1 S GENTAMICIN <=2 S LEVOFLOXACIN <=0.5 S NITROFURANTOIN <=32 S MEROPENEM <=1 S PIPERACILLIN/TAZOBACTAM <=8 S TRIMETHOPRIM/SUFLAMETHOXAZOLE <=2/38 S ASSESSMENT: Urinary tract infection with Citrobacter koseri. Leukocytosis. Acute on chronic renal failure. Acute on chronic CHF. Diabetes mellitus. PLAN: Continue ceftriaxone. Continue diuretics. Continue monitoring glucose levels. Avoid nephrotoxic medications. This case was reviewed and discussed with my supervising physician and the above assessment and plan was formulated and agreed upon. ATTESTATION BY PHYSICIAN I have seen and examined the patient. I reviewed the documentation, medical decision making, and treatment plan as noted by the mid-level provider above. I agree with the findings and plan of care. LOPEZ GIVENS MD, MIRTA L [facility] May 13, 2024 14:58
== END 2024-05-13 16:00 | disposition home or self-care (01) | DRG 291 ==
LOC: EDH 08:55 → EDHIP 14:02 → 2AH 05-11 13:45
PROVIDERS: ADMIT Internal Medicine; ATTEND Internal Medicine
DX: I13.0 Hypertensive heart and chronic kidney disease with heart failure and stage 1 through stage 4 chronic kidney disease, or unspecified chronic kidney disease (principal); I50.43 Acute on chronic combined systolic (congestive) and diastolic (congestive) heart failure; N17.9 Acute kidney failure, unspecified; N39.0 Urinary tract infection, site not specified; I42.9 Cardiomyopathy, unspecified; Z20.822 Contact with and (suspected) exposure to COVID-19; I25.10 Atherosclerotic heart disease of native coronary artery without angina pectoris; N18.9 Chronic kidney disease, unspecified; E11.22 Type 2 diabetes mellitus with diabetic chronic kidney disease; K21.9 Gastro-esophageal reflux disease without esophagitis; E78.5 Hyperlipidemia, unspecified; E66.9 Obesity, unspecified; I48.91 Unspecified atrial fibrillation; R54 Age-related physical debility; J44.9 Chronic obstructive pulmonary disease, unspecified; K74.60 Unspecified cirrhosis of liver; I34.81 Nonrheumatic mitral (valve) annulus calcification; Z83.3 Family history of diabetes mellitus; Z95.1 Presence of aortocoronary bypass graft; Z68.31 Body mass index [BMI] 31.0-31.9, adult
CPT/HCPCS: 36415; 71045; 73590; 73610; 76700; 80048; 80051; 80053; 80061; 80076; 81001; 81003; 82570; 82948; 83036; 83605; 83735; 83880; 83935; 84100; 84443; 84484; 84550; 85025; 85027; 85610; 85730; 87040; 87086; 87186; 93005; 93306; 93356; 93970; 94640; 94664; 99285; G0378; J0696; J1644; J1815; J1940; J2270; J3411